=== PATIENT | male | born 1935 | race Hispanic/Latino ===

== ENCOUNTER 2016-11-02 21:21 | Inpatient (IN) | payer MEDICARE, OTHER ==
[2016-11-02 21:21] VITALS: PULSE 74
[2016-11-02 22:53] LABS: BASO # 0.02 K/mm3 (0.0-2.0); BASO % 0.3 % (0.0-3.0); EOS # 0.1 (0.0-0.7); GRAN # 4.14 (1.4-6.5); GRAN % 69.2 % (50.0-68.0); HEMOGLOBIN 11.8 gm/dL (14.0-18.0); LYMPH % 17.1 % (22.0-35.0); MEAN CORPUSCULAR HEMOGLOBIN 31.6 pg (25.0-35.0); MEAN CORPUSCULAR HGB CONC 32.9 g/dl (31.0-37.0); MEAN PLATELET VOLUME 10.7 fl (7.0-11.0); MONO # 0.7 (0.1-0.6); MONO % 11.4 % (1.0-6.0); PLATELET COUNT 130 10^3/uL (120.0-450.0); RBC 3.74 10^6/uL (3.5-6.1)
[2016-11-02 23:09] LABS: CALCIUM 8.8 mg/dL (8.4-10.5)
[2016-11-02 23:11] LABS: INR 2.38 (0.93-1.08); PARTIAL THROMBOPLASTIN TIME 36.7 Seconds (23.7-30.8); PROTHROMBIN TIME 25.7 Seconds (9.9-11.8)
[2016-11-02 23:20] LABS: TROPONIN I 0.02 ng/mL
[2016-11-02 23:25] LABS: CK-MB 2.9 ng/mL (0.0-3.6)
--- NOTE | 2016-11-03 00:15 | ED PDOC ---
Arrival/HPI <Huan Araujo - Last Filed: 11/03/16 00:33> - General Historian: Patient - History of Present Illness Time/Duration: < week (2 days) Symptom Onset: Gradual Symptom Course: Unchanged Activities at Onset: Rest, Light Context: Home <Mary Nath - Last Filed: 11/03/16 00:45> - General Chief Complaint: Cough, Cold, Congestion Time Seen by Provider: 11/02/16 22:25 - History of Present Illness Narrative History of Present Illness (Text): 11/02/16 22:25 81 year old male, whose past medical history includes CHF and atrial fibrillation, who presents to the Emergency department complaining of cough and shortness of breath for the past 2 days. Patient reports he was recently hospitalist in [place] for tachycardia and had a cardiac catheterization at that point. report patient was admitted to the hospital with a cough and left with the sane cough and shortness of breath. Patient presents today with cough and denies any fever, chest pain, nausea, vomiting, or any other complaints. (Mary Nath) Past Medical History - Provider Review Nursing Documentation Reviewed: Yes - Infectious Disease Hx of Infectious Diseases: None - Tetanus Immunization Tetanus Immunization: Unknown - Cardiac Other/Comment: hyperlipidemia, cabg. DAWNA- cardioversion. ventricular tachycardia - Pulmonary Hx Respiratory Disorders: No - Neurological HX Cerebrovascular Accident: Yes (aphasia, 12/2013, [facility]) Hx Syncope: Yes - HEENT Hx HEENT Disorder: No - Renal Hx Renal Disorder: No - Endocrine/Metabolic Hx Hypothyroidism: Yes - Hematological/Oncological Hx Blood Disorders: No - Integumentary Hx Dermatological Disorder: No - Musculoskeletal/Rheumatological Hx Falls: Yes - Gastrointestinal Hx Gastrointestinal Disorders: No - Genitourinary/Gynecological Hx Urinary Tract Infection: Yes - Psychiatric Hx Depression: No Hx Emotional Abuse: No Hx Physical Abuse: No Hx Substance Use: No - Surgical History Hx Cardiac Catheterization: Yes - Anesthesia Hx Anesthesia: Yes - Suicidal Assessment Feels Threatened In Home Enviroment: No <Mary Nath - Last Filed: 11/03/16 00:45> Family/Social History - Physician Review Nursing Documentation Reviewed: Yes Family/Social History: Unknown Family HX Smoking Status: Never Smoked Hx Alcohol Use: No Hx Substance Use: No Hx Substance Use Treatment: No <Mary Nath - Last Filed: 11/03/16 00:45> Allergies/Home Meds <Huan Araujo - Last Filed: 11/03/16 00:33> <Mary Nath - Last Filed: 11/03/16 00:45> Allergies/Adverse Reactions: Allergies No Known Allergies Allergy (Verified 09/26/11 10:34) Home Medications: Home Meds Medication Instructions Recorded Confirmed Levothyroxine [Synthroid] 50 mcg PO DAILY 12/31/12 11/02/16 Metoprolol Tartrate [Lopressor] 50 mg PO BID 11/06/13 11/02/16 Warfarin Sodium [Coumadin] 4 mg PO DAILY 11/06/13 11/02/16 Amiodarone HCl [Pacerone] 200 mg PO DAILY 11/02/16 11/02/16 Atorvastatin [Lipitor] 40 mg PO DIN 11/02/16 11/02/16 Famotidine [Pepcid] 20 mg PO HS 11/02/16 11/02/16 Finasteride [Proscar] 5 mg PO DAILY 11/02/16 11/02/16 Furosemide [Lasix] 20 mg PO DAILY 11/02/16 11/02/16 Lisinopril [Zestril] 2.5 mg PO DAILY 11/02/16 11/02/16 Memantine HCl 10 mg PO DAILY 11/02/16 11/02/16 Potassium Chloride [Klor-Con 10 meq PO DAILY 11/02/16 11/02/16 Sprinkle] Tamsulosin HCl [Flomax] 0.4 mg PO DAILY 11/02/16 11/02/16 Warfarin [Coumadin] 2 mg PO DAILY 11/02/16 11/02/16 Review of Systems - Physician Review All systems were reviewed & negative as marked: Yes - Review of Systems Constitutional: Normal. absent: Fevers Eyes: Normal ENT: Normal Respiratory: SOB, Cough Cardiovascular: Normal. absent: Chest Pain Gastrointestinal: Normal. absent: Abdominal Pain, Diarrhea, Nausea, Vomiting Genitourinary Male: Normal. absent: Dysuria, Frequency, Hematuria, Urinary Output Changes Musculoskeletal: Normal. absent: Back Pain, Neck Pain Skin: Normal. absent: Rash Neurological: Normal. absent: Headache, Dizziness Endocrine: Normal Hemo/Lymphatic: Normal Psychiatric: Normal <Mary Nath - Last Filed: 11/03/16 00:45> Physical Exam Vital Signs Reviewed: Yes Temperature: Afebrile Blood Pressure: Normal Pulse: Regular Respiratory Rate: Normal Appearance: Positive for: Well-Appearing, Non-Toxic, Comfortable Pain Distress: None Mental Status: Positive for: Alert and Oriented X 3 - Systems Exam Head: Present: Atraumatic, Normocephalic Pupils: Present: PERRL Extroacular Muscles: Present: EOMI Conjunctiva: Present: Normal Mouth: Present: Moist Mucous Membranes Neck: Present: Normal Range of Motion Respiratory/Chest: Present: Rales (Minimal rales bilaterally). No: Respiratory Distress, Accessory Muscle Use Cardiovascular: Present: Regular Rate and Rhythm, Normal S1, S2. No: Murmurs Abdomen: Present: Normal Bowel Sounds. No: Tenderness, Distention, Peritoneal Signs Back: Present: Normal Inspection. No: CVA Tenderness, Midline Tenderness, Paraspinal Tenderness Upper Extremity: Present: Normal Inspection. No: Cyanosis, Edema Lower Extremity: Present: Normal Inspection, NORMAL PULSES, Normal ROM, Neurovascularly Intact, Capillary Refill < 2 s. No: Edema, Cyanosis, Tenderness , Swelling, Erythema, Deformity, Temperature Abnormalties Neurological: Present: GCS=15, CN II-XII Intact, Speech Normal Skin: Present: Warm, Dry, Normal Color. No: Rashes Psychiatric: Present: Alert, Oriented x 3, Normal Insight, Normal Concentration <Mary Nath - Last Filed: 11/03/16 00:45> Vital Signs Temp Pulse Resp BP Pulse Ox 11/02/16 23:14 61 16 138/84 99 11/02/16 21:44 98.3 F 65 14 117/98 H 96 Medical Decision Making <Huan Araujo - Last Filed: 11/03/16 00:33> - Lab Interpretations I have reviewed the lab results: Yes - RAD Interpretation Summer Clerk: ED Physician - EKG Interpretation Interpreted by ED Physician: Yes Type: 12 lead EKG <Mary Nath - Last Filed: 11/03/16 00:45> ED Course and Treatment: 11/02/16 22:25 Impression: 81 year old male complaining of cough and shortness of breath x 2 days. Differential Diagnosis include but are not limited to: CHF exacerbation Plan: -- EKG -- CXR -- CBC, CMP -- Troponin, BNP -- PT/PTT -- Reassess and disposition Progress Notes: pt seen and evaluated by dr. araujo . Pt saturating 90% on room air. Pt given 3L NC, now saturating 97%. Reviewed EKG, a fib at 64 bpm. LAD. Incomplete LBBB. Labs reviewed, troponin:0.02, BNP: 1450. Chest X-ray shows some blunting of costophrenic angles, greater on left, and mild vascular congestion lasix 20mg IV given Case discussed with Dr. Alvin Olivier, who is aware and agrees with plan. Accepts pt in to his service. Pt will be admitted to Telemetry for CHF exacerbation with Dr. Madrigal on cardiology consult. impression; chf exacerbation tele obs. (Mary Nath) - Lab Interpretations Lab Results: 11/02/16 22:38 11/02/16 22:38 Lab Results 11/02/16 22:38: PT 25.7 H, INR 2.38 H, APTT 36.7 H 11/02/16 22:38: WBC 6.0, RBC 3.74, Hgb 11.8 L, Hct 35.9 L, MCV 96.0, MCH 31.6, MCHC 32.9, RDW 17.0 H, Plt Count 130, MPV 10.7, Gran % 69.2 H, Lymph % (Auto) 17.1 L, Imperial % (Auto) 11.4 H, Eos % (Auto) 2.0, Baso % (Auto) 0.3, Gran # 4.14, Lymph # 1.0 L, Imperial # 0.7 H, Eos # 0.1, Baso # 0.02 11/02/16 22:38: Sodium 139, Potassium 4.2, Chloride 100, Carbon Dioxide 30, Anion Gap 13, BUN 42 H, Creatinine 1.4, Est GFR ( Amer) 59, Est GFR (Non- Af Amer) 49, Random Glucose 138 H, Calcium 8.8, Total Bilirubin 1.2, AST 40, ALT 33, Alkaline Phosphatase 105, Lactate Dehydrogenase 706 H, Total Creatine Kinase 252 H, CK-MB (CK-2) 2.9, CK-MB (CK-2) % Cancelled, Troponin I 0.02 D, NT -Pro-B Natriuret Pep 1450 H, Total Protein 7.9, Albumin 4.0, Globulin 3.9, Albumin/Globulin Ratio 1.0 L - RAD Interpretation Radiology Orders: 11/02/16 22:25 CHEST PORTABLE [RAD] Stat - Medication Orders Current Medication Orders: Discontinued Medications Furosemide (Lasix) 20 mg IVP STAT STA Stop: 11/03/16 00:23 - PA / ROBOT DESIGNER / Resident Statement MD/DO has reviewed & agrees with the documentation as recorded. MD/DO has examined the patient and agrees with the treatment plan. <Huan Araujo - Last Filed: 11/03/16 00:33> - Scribe Statement The provider has reviewed the documentation as recorded by the Scribe <Mary Nath - Last Filed: 11/03/16 00:45> - Scribe Statement Melody Davison All medical record entries made by the Scribe were at my direction and personally dictated by me. I have reviewed the chart and agree that the record accurately reflects my personal performance of the history, physical exam, medical decision making, and the department course for this patient. I have also personally directed, reviewed, and agree with the discharge instructions and disposition. (Mary Nath) Disposition/Present on Arrival <Huan Araujo - Last Filed: 11/03/16 00:33> - Present on Arrival Any Indicators Present on Arrival: No History of DVT/PE: No History of Uncontrolled Diabetes: No Urinary Catheter: No History of Decub. Ulcer: No History Surgical Site Infection Following: None - Disposition Have Diagnosis and Disposition been Completed?: Yes Disposition Time: 00:05 Patient Plan: Observation, Telemetry <Mary Nath - Last Filed: 11/03/16 00:45> - Disposition Diagnosis: CHF (congestive heart failure) Disposition: HOSPITALIZED Condition: FAIR
[2016-11-03 02:36] VITALS: BMI 25.2
[2016-11-03] MEDS ORDERED: Levalbuterol 0.63 MG/3 ML Inhal Soln UD IH PRN (09:28)
[2016-11-03 09:29] LABS: HEMOGLOBIN 11.4 gm/dL (14.0-18.0); MEAN CELL VOLUME 95.4 fL (80.0-105.0); MEAN CORPUSCULAR HEMOGLOBIN 31.1 pg (25.0-35.0); MEAN CORPUSCULAR HGB CONC 32.7 g/dl (31.0-37.0); MEAN PLATELET VOLUME 10.6 fl (7.0-11.0); RBC 3.66 10^6/uL (3.5-6.1); RED CELL DISTRIBUTION WIDTH 16.7 % (11.5-14.5); WHITE BLOOD COUNT 5.8 10^3/ul (4.5-11.0)
--- NOTE | 2016-11-03 09:40 | RAD ---
HISTORY: cough/sob COMPARISON: 03/16/2015 FINDINGS: LUNGS: No active pulmonary disease. PLEURA: Minimal blunting of the costophrenic angles CARDIOVASCULAR: Mild cardiomegaly OSSEOUS STRUCTURES: Sternal wires VISUALIZED UPPER ABDOMEN: Normal. OTHER FINDINGS: None. IMPRESSION: No active disease.
--- NOTE | 2016-11-03 11:16 | CP.PCM.CON ---
History of Present Illness - History of Present Illness History of Present Illness: Cardiac Eval, Hx of CAD, CABG, Ch A fib, recently Dc from [facility], C/ o Cough Past Patient History - Infectious Disease Hx of Infectious Diseases: None (Cad, S.OP CABG, 1997, Hx of Cath Three Vd. patent DANIELS to LAD, SVG sequential to D1, OM1, andLPDA, LOTTIE to RCA non Functional, But RCA has 50% stenosis, EDP-18, EF-45-505, Dt.. 03/19/2015.), C.diff (of CVA . Hx oh Ch Afib on anti coag), MRSA (of [place], Hx of Psych disorder. ) - Tetanus Immunizations Tetanus Immunization: Unknown - Past Social History Smoking Status: Never Smoked - CARDIAC Hx Cardiac Disorders: Yes (CABG) Hx Angina: No Hx Cardia Arrhythmia: Yes (A Fib) Hx Circulatory Problems: No Hx Congestive Heart Failure: Yes Hx Heart Murmur: Yes Hx Heart Transplant: No Hx Hypercholesterolemia: Yes Hx Hypertension: Yes Hx Internal Defibrillator: No Hx Mitral Valve Prolapse: No Hx Pacemaker: No Hx Peripheral Edema: No Hx Peripheral Vascular Disease: No - PULMONARY Hx Respiratory Disorders: No Hx Asthma: No Hx Bronchitis: No Hx Chronic Obstructive Pulmonary Disease (COPD): No Hx Emphysema: No Hx Pneumonia: No Hx Respiratory Aspiration: No Hx Respiratory Tract Infection: No Hx Sleep Apnea: No Hx Tuberculosis: No - NEUROLOGICAL Hx Neurological Disorder: Yes Hx Alzheimer's Disease: No HX Cerebrovascular Accident: Yes Hx Dementia: No Hx Dizziness: No Hx Meningitis: No Hx Migraine: No Hx Parkinson's Disease: No Hx Seizures: No Hx Transient Ischemic Attacks (TIA): Yes - HEENT Hx HEENT Problems: No Hx Blind: No Hx Cataracts: No Hx Deafness: No Hx Difficulty Chewing: No Hx Epistaxis: No Hx Glaucoma: No Hx Macular Degeneration: No - RENAL Hx Chronic Kidney Disease: No Hx Dialysis: No Hx Kidney Stones: No Hx Neurogenic Bladder: No Hx Pyelonephritis: No Hx Renal (Kidney) Cancer: No Hx Renal Failure: No - ENDOCRINE/METABOLIC Hx Endocrine Disorders: Yes Hx Adrenal Cancer: No Hx Diabetes Insipidus: No Hx Diabetes Mellitus Type 1: No Hx Diabetes Mellitus Type 2: No Hx Hyperthyroidism: No Hx Hypothyroidism: Yes Hx Systemic Lupus Erythematosus: No - HEMATOLOGICAL/ONCOLOGICAL Hx Blood Disorders: No Hx AIDS: No Hx Anemia: No Hx Cancer: No Hx Chemotherapy: No Hx Cirrhosis: No Hx Hemophilia: No Hx Hepatitis A: No Hx Hepatitis B: No Hx Hepatitis C: No Hx Human Immunodeficiency Virus (HIV): No Hx Metastesis: No Hx Shingles: No Hx Sickle Cell Disease: No Hx Unexplained Bleeding: No - INTEGUMENTARY Hx Dermatological Problems: No Hx Basil Cell: No Hx Eczema: No Hx Melanoma: No Hx Psoriasis: No Hx Squamous Cell: No - MUSCULOSKELETAL/RHEUMATOLOGICAL Hx Musculoskeletal Disorders: Yes Hx Arthritis: No Hx Back Pain: No Hx Degenerative Joint Disease: No Hx Falls: Yes Hx Fractures: No Hx Gout: No Hx Herniated Disk: No Hx Myasthenia Gravis: No Hx Osteoarthritis: No Hx Osteomyelitis: No Hx Osteoporosis: No Hx Rhabdomyolysis: No Hx Spinal Stenosis: No Hx Unsteady Gait: Yes - GASTROINTESTINAL Hx Gastrointestinal Disorders: No Hx Colostomy: No Hx Crohn's Disease: No Hx Diverticulitis: No Hx Gall Bladder Disease: No Hx Gastroesophageal Reflux: No Hx Ileostomy: No Hx Liver Failure: No Hx Pancreatitis: No HX Swallowing Problems: No Hx Ulcer: No - GENITOURINARY/GYNECOLOGICAL Hx Genitourinary Disorders: Yes Hx Hematuria: No Hx Incontinence: No Hx Prostate Problems: No Hx Sexually Transmitted Disorders: No Hx Urinary Tract Infection: Yes - PSYCHIATRIC Hx Psychophysiologic Disorder: No Hx Anxiety: No Hx Bipolar Disorder: No Hx Depression: No Hx Emotional Abuse: No Hx Hallucinations: No Hx Panic Symptoms: No Hx Paranoia: No Hx Post Traumatic Stress Disorder: No Hx Psychosis: No Hx Physical Abuse: No Hx Schizophrenia: No Hx Sexual Abuse: No - SURGICAL HISTORY Hx Surgeries: Yes (CABG) Hx Amputation: No Hx Appendectomy: No Hx Cardiac Catheterization: No Hx Cholecystectomy: No Hx Coronary Stent: No Hx Gastric Bypass Surgery: No Hx Hysterectomy: No Hx Joint Replacement: No Hx Kidney Transplant: No Hx Liver Transplant: No Hx Mastectomy: No Hx Musculoskeletal Surgery: No Hx Open Heart Surgery: No Hx Orthopedic Surgery: No Hx Splenectomy: No Hx Valve Replacement: No - ANESTHESIA Hx Anesthesia: Yes Meds Allergies/Adverse Reactions: Allergies Allergy/AdvReac Type Severity Reaction Status Date / Time No Known Allergies Allergy Verified 09/26/11 10:34 - Medications Medications: Current Medications Budesonide (Pulmicort Respules) 0.5 mg IH [id number] PARVEEN Famotidine (Pepcid) 20 mg PO 1000,2200 PARVEEN Levalbuterol HCl (Xopenex) 0.63 mg IH [id number] [facility]VEEN Levalbuterol HCl (Xopenex) 0.63 mg IH Q2 PRN PRN Reason: Shortness of Breath Levothyroxine Sodium (Synthroid) 50 mcg PO 0600 PARVEEN Methylprednisolone (Solu-Medrol) 30 mg IVP Q12 PARVEEN Sotalol HCl (Betapace) 80 mg PO BID PARVEEN Tamsulosin HCl (Flomax) 0.4 mg PO DAILY [facility] Results - Vital Signs Recent Vital Signs: Last Vital Signs Temp 98.4 F 11/03/16 06:00 Pulse 63 11/03/16 06:00 Resp 19 11/03/16 06:00 BP 96/49 L 11/03/16 06:00 Pulse Ox 98 11/03/16 06:00 - Labs Result Diagrams: 11/03/16 09:15 11/02/16 22:38 Labs: Laboratory Results - last 24 hr 11/03/16 09:15 WBC 5.8 RBC 3.66 Hgb 11.4 L Hct 34.9 L MCV 95.4 MCH 31.1 MCHC 32.7 RDW 16.7 H Plt Count 136 MPV 10.6 - EKG Data EKG comments: A fib64, Poor Rr progression.ILBB> Assessment & Plan - Assessment and Plan (Free Text) Assessment: 81 year old male with CAD, CABG.1997, recet cath Non Obst CAD Ch, A fib on Coumadin, Low normal EF-45-50 Hx of CVA Hx of VT hx of psych disorder admittecf with cough possibly acute bronchitis R/O CHF acute on ch secodary to Ischemic CMP Plan: Broad spectrum Antibiotica diyretics resume Coumadinf/u Lab F/u Cpk/ troponin.
[2016-11-03] MEDS ORDERED: Azithromycin 500MG/NS 250ml 500 MG/250 ML BAG IVPB STA (11:22)
[2016-11-03] MEDS: MethylPREDNISolone 40 mg Vial IVP SCH ×2 (11:31→21:19)
--- NOTE | 2016-11-03 12:07 | CARD ---
APPROVED REPORT EKG Measurement Heart [id number] <Conclusion> Atrial fibrillation with a competing junctional pacemaker with premature ventricular or aberrantly conducted complexes Left axis deviation Incomplete left bundle branch block Nonspecific ST and T wave abnormality, probably digitalis effect Abnormal ECG
[2016-11-03] MEDS: Levalbuterol 0.63 MG/3 ML Inhal Soln UD IH SCH ×2 (13:21→19:06)
[2016-11-03] MEDS: Budesonide 0.5 mg/2 ml Inhal Susp UD IH SCH (19:06)
[2016-11-04] MEDS: Levalbuterol 0.63 MG/3 ML Inhal Soln UD IH SCH ×4 (02:48→19:26)
[2016-11-04] MEDS: Levothyroxine 50 MCG TAB PO SCH (05:33)
[2016-11-04 07:51] LABS: ALB/GLOB RATIO 0.9 (1.1-1.8); ALBUMIN 4.2 g/dL (3.0-4.8); CALCIUM 9.1 mg/dL (8.4-10.5); MAGNESIUM 2.3 mg/dL (1.7-2.2)
[2016-11-04 07:56] LABS: INR 2.55 (0.93-1.08); PROTHROMBIN TIME 27.5 Seconds (9.9-11.8)
[2016-11-04 08:26] LABS: HEMOGLOBIN 12.1 gm/dL (14.0-18.0); MEAN CELL VOLUME 95.3 fL (80.0-105.0); MEAN CORPUSCULAR HEMOGLOBIN 31.7 pg (25.0-35.0); MEAN CORPUSCULAR HGB CONC 33.2 g/dl (31.0-37.0); MEAN PLATELET VOLUME 10.7 fl (7.0-11.0); RBC 3.82 10^6/uL (3.5-6.1); RED CELL DISTRIBUTION WIDTH 16.6 % (11.5-14.5); WHITE BLOOD COUNT 4.9 10^3/ul (4.5-11.0)
[2016-11-04] MEDS: Budesonide 0.5 mg/2 ml Inhal Susp UD IH SCH ×2 (08:28→19:26)
--- NOTE | 2016-11-04 08:40 | CP.PCM.PN ---
Subjective - Date & Time of Evaluation Date of Evaluation: 11/04/16 Time of Evaluation: 07:00 - Subjective Subjective: Feels better and wans to go home Objective - Vital Signs/Intake and Output Vital Signs (last 24 hours): Temp Pulse Resp BP Pulse Ox 97.8 F 67 18 116/65 95 11/04/16 06:00 11/04/16 06:00 11/04/16 06:00 11/04/16 06:00 11/04/16 06:00 Intake and Output: 11/04/16 11/04/16 06:59 18:59 Intake Total 500 Output Total 500 Balance 0 - Medications Medications: Current Medications Atorvastatin Calcium (Lipitor) 40 mg PO DIN [facility] Last Admin: 11/03/16 18:37 Dose: 40 mg Azithromycin (Zithromax) 250 mg PO DAILY [facility] PRN Reason: Protocol Stop: 11/07/16 23:59 Budesonide (Pulmicort Respules) 0.5 mg IH [id number] [facility] Last Admin: 11/04/16 08:28 Dose: 0.5 mg Famotidine (Pepcid) 20 mg PO 1000,2200 [facility] Last Admin: 11/03/16 21:18 Dose: 20 mg Furosemide (Lasix) 40 mg PO DAILY [facility] Levalbuterol HCl (Xopenex) 0.63 mg IH [id number] [facility] Last Admin: 11/04/16 08:28 Dose: 0.63 mg Levalbuterol HCl (Xopenex) 0.63 mg IH Q2 PRN PRN Reason: Shortness of Breath Levothyroxine Sodium (Synthroid) 50 mcg PO 0600 [facility] Last Admin: 11/04/16 05:33 Dose: 50 mcg Methylprednisolone (Solu-Medrol) 20 mg IVP Q12 [facility] Potassium Citrate (Urocit-K Er Tab) 10 meq PO DAILY [facility] Sotalol HCl (Betapace) 80 mg PO BID [facility] Last Admin: 11/03/16 18:37 Dose: 80 mg Tamsulosin HCl (Flomax) 0.4 mg PO DAILY [facility] Last Admin: 11/03/16 11:28 Dose: 0.4 mg Warfarin Sodium (Coumadin) 2 mg PO 1800 PARVEEN PRN Reason: Protocol Last Admin: 11/03/16 18:37 Dose: 2 mg - Labs Labs: 11/04/16 07:00 11/04/16 06:30 PT 27.5 Seconds (9.9-11.8) H 11/04/16 06:30 INR 2.55 (0.93-1.08) H 11/04/16 06:30 APTT 36.7 Seconds (23.7-30.8) H 11/02/16 22:38 Assessment and Plan - Assessment and Plan (Free Text) [facility] 81 [facility] [place] [facility] [place] C[place] CAD, CABG... 1997 Hx of Recent Cath ... Medical treatment Ch Afib on anti coag Hx of Vt on sotalol Mildly decreased LV FX. EF-45-50 Hx of Psych Disorder Acut Bronchitis on Zithromax ... improving Plan: Continue zithromax diuretics Monitor INR F/U Cx Pa and lat Dc planning.
[2016-11-04] MEDS: MethylPREDNISolone 40 mg Vial IVP SCH ×2 (10:10→22:35)
--- NOTE | 2016-11-04 10:14 | RAD ---
HISTORY: F/U pneumonia and compare COMPARISON: 11/02/2016 TECHNIQUE: Chest PA and lateral FINDINGS: LUNGS: Minimal bibasilar atelectasis. PLEURA: No significant pleural effusion identified. No pneumothorax apparent. CARDIOVASCULAR: Mild cardiomegaly. Sternal wires are present OSSEOUS STRUCTURES: No significant abnormalities. VISUALIZED UPPER ABDOMEN: Normal. OTHER FINDINGS: None. IMPRESSION: No active disease.
--- NOTE | 2016-11-04 19:49 | CP.PCM.CON ---
History of Present Illness - History of Present Illness History of Present Illness: 81 y.o. male admitted for cough and SOB. Found to have exacerbation of COPD. Yesterday became confused and .restless I spoke at [facility] with patient's and RN. Patient has 1:1 sitter. Review of Systems - Review of Systems All systems: reviewed and no additional remarkable complaints except Past Patient History - Infectious Disease Hx of Infectious Diseases: None (Cad, S.OP CABG, 1997, Hx of Cath Three Vd. patent DANIELS to LAD, SVG sequential to D1, OM1, andLPDA, LOTTIE to RCA non Functional, But RCA has 50% stenosis, EDP-18, [id number], Dt.. 03/19/2015.), C.diff (of CVA . Hx oh Ch Afib on anti coag), MRSA (of [place], Hx of Psych disorder. ) - Tetanus Immunizations Tetanus Immunization: Unknown - Past Medical History & Family History Past Medical History?: No Past Family History: Reviewed and not pertinent - Past Social History Smoking Status: Former Smoker Chewing Tobacco Use: No Cigar Use: No - CARDIAC Hx Cardiac Disorders: Yes (afib, CAD, CABG) Hx Congestive Heart Failure: Yes - PULMONARY Hx Respiratory Disorders: No Hx Asthma: No Hx Bronchitis: No Hx Chronic Obstructive Pulmonary Disease (COPD): No Hx Emphysema: No Hx Pneumonia: No Hx Respiratory Aspiration: No Hx Respiratory Tract Infection: No Hx Sleep Apnea: No Hx Tuberculosis: No - NEUROLOGICAL Hx Neurological Disorder: Yes Hx Alzheimer's Disease: No HX Cerebrovascular Accident: Yes Hx Dementia: No Hx Dizziness: No Hx Meningitis: No Hx Migraine: No Hx Parkinson's Disease: No Hx Seizures: No Hx Transient Ischemic Attacks (TIA): Yes - HEENT Hx HEENT Problems: No Hx Blind: No Hx Cataracts: No Hx Deafness: No Hx Difficulty Chewing: No Hx Epistaxis: No Hx Glaucoma: No Hx Macular Degeneration: No - RENAL Hx Chronic Kidney Disease: No Hx Dialysis: No Hx Kidney Stones: No Hx Neurogenic Bladder: No Hx Pyelonephritis: No Hx Renal (Kidney) Cancer: No Hx Renal Failure: No - ENDOCRINE/METABOLIC Hx Endocrine Disorders: Yes Hx Adrenal Cancer: No Hx Diabetes Insipidus: No Hx Diabetes Mellitus Type 1: No Hx Diabetes Mellitus Type 2: No Hx Hyperthyroidism: No Hx Hypothyroidism: Yes Hx Systemic Lupus Erythematosus: No - HEMATOLOGICAL/ONCOLOGICAL Hx Blood Disorders: No Hx AIDS: No Hx Anemia: No Hx Cancer: No Hx Chemotherapy: No Hx Cirrhosis: No Hx Hemophilia: No Hx Hepatitis A: No Hx Hepatitis B: No Hx Hepatitis C: No Hx Human Immunodeficiency Virus (HIV): No Hx Metastesis: No Hx Shingles: No Hx Sickle Cell Disease: No Hx Unexplained Bleeding: No - INTEGUMENTARY Hx Dermatological Problems: No Hx Basil Cell: No Hx Eczema: No Hx Melanoma: No Hx Psoriasis: No Hx Squamous Cell: No - MUSCULOSKELETAL/RHEUMATOLOGICAL Hx Musculoskeletal Disorders: Yes Hx Arthritis: No Hx Back Pain: No Hx Degenerative Joint Disease: No Hx Falls: Yes Hx Fractures: No Hx Gout: No Hx Herniated Disk: No Hx Myasthenia Gravis: No Hx Osteoarthritis: No Hx Osteomyelitis: No Hx Osteoporosis: No Hx Rhabdomyolysis: No Hx Spinal Stenosis: No Hx Unsteady Gait: Yes - GASTROINTESTINAL Hx Gastrointestinal Disorders: No Hx Colostomy: No Hx Crohn's Disease: No Hx Diverticulitis: No Hx Gall Bladder Disease: No Hx Gastroesophageal Reflux: No Hx Ileostomy: No Hx Liver Failure: No Hx Pancreatitis: No HX Swallowing Problems: No Hx Ulcer: No - GENITOURINARY/GYNECOLOGICAL Hx Genitourinary Disorders: Yes Hx Hematuria: No Hx Incontinence: No Hx Prostate Problems: No Hx Sexually Transmitted Disorders: No Hx Urinary Tract Infection: Yes - PSYCHIATRIC Hx Psychophysiologic Disorder: Yes Hx Anxiety: Yes Hx Bipolar Disorder: No Hx Depression: No Hx Emotional Abuse: No Hx Hallucinations: No Hx Panic Symptoms: Yes Hx Paranoia: No Hx Post Traumatic Stress Disorder: No Hx Psychosis: Yes Hx Physical Abuse: No Hx Schizophrenia: No Hx Sexual Abuse: No Other/Comment: Psychiatric Hospitalization for Behavioral disturbances and agitation secondary to vascular dementia at [facility] in 03/2015; H/O AFib with rapid rate,CHF,COPD. CABG 1998. 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 Also HLD.Hypothyroidism, HTN. - SURGICAL HISTORY Hx Surgeries: Yes (CABG) Hx Amputation: No Hx Appendectomy: No Hx Arteriovenous Shunt: No Hx Arthroscopy: No Hx Bile Duct Stent: No Hx Breast Biopsy: No Hx Cataract Extraction: No Hx Cardiac Catheterization: No Hx Carotid Endarterectomy: No Hx Cholecystectomy: No Hx Coronary Artery Bypass Graft: Yes Hx Coronary Stent: No Hx Dilation and Curettage: No Hx Eye Surgery: No Hx Gastric Bypass Surgery: No Hx Hysterectomy: No Hx Joint Replacement: No Hx Kidney Transplant: No Hx Liver Transplant: No Hx Mastectomy: No Hx Musculoskeletal Surgery: No Hx Open Heart Surgery: No Hx Orthopedic Surgery: No Hx Splenectomy: No Hx Valve Replacement: No - ANESTHESIA Hx Anesthesia: Yes Meds Allergies/Adverse Reactions: Allergies Allergy/AdvReac Type Severity Reaction Status Date / Time No Known Allergies Allergy Verified 09/26/11 10:34 - Medications Medications: Current Medications Atorvastatin Calcium (Lipitor) 40 mg PO DIN [facility] Last Admin: 11/04/16 17:56 Dose: 40 mg Azithromycin (Zithromax) 250 mg PO DAILY [facility] PRN Reason: Protocol Stop: 11/07/16 23:59 Last Admin: 11/04/16 10:08 Dose: 250 mg Budesonide (Pulmicort Respules) 0.5 mg IH [id number] [facility] Last Admin: 11/04/16 08:28 Dose: 0.5 mg Donepezil HCl (Aricept) 5 mg PO HS [facility] Famotidine (Pepcid) 20 mg PO 1000,2200 [facility] Last Admin: 11/04/16 10:09 Dose: 20 mg Fluoxetine HCl (Prozac) 10 mg PO DAILY [facility] Furosemide (Lasix) 40 mg PO DAILY [facility] Last Admin: 11/04/16 10:09 Dose: 40 mg Levalbuterol HCl (Xopenex) 0.63 mg IH [id number] [facility] Last Admin: 11/04/16 13:40 Dose: 0.63 mg Levalbuterol HCl (Xopenex) 0.63 mg IH Q2 PRN PRN Reason: Shortness of Breath Levothyroxine Sodium (Synthroid) 50 mcg PO 0600 [facility] Last Admin: 11/04/16 05:33 Dose: 50 mcg Methylprednisolone (Solu-Medrol) 20 mg IVP Q12 [facility] Last Admin: 11/04/16 10:10 Dose: 20 mg Potassium Citrate (Urocit-K Er Tab) 10 meq PO DAILY [facility] Last Admin: 11/04/16 10:08 Dose: 10 meq Risperidone (Risperdal Tab) 0.5 mg PO HS [facility] PRN Reason: Protocol Sotalol HCl (Betapace) 80 mg PO BID [facility] Last Admin: 11/04/16 17:58 Dose: 80 mg Tamsulosin HCl (Flomax) 0.4 mg PO DAILY [facility] Last Admin: 11/04/16 10:09 Dose: 0.4 mg Warfarin Sodium (Coumadin) 2 mg PO 1800 [facility] PRN Reason: Protocol Last Admin: 11/04/16 17:56 Dose: 2 mg Physical Exam - Constitutional Appears: Confused - Head Exam Head Exam: NORMOCEPHALIC - Psychiatric Exam Psychiatric exam: Anxious, Normal Mood Additional comments: Disoriented to month, day and year. Recent memory moderately impaired. Poor insight into medical condition. Restless with pressured speech No suicidal ideation or hallucinations Thinking confabulatory . Results - Vital Signs Recent Vital Signs: Last Vital Signs Temp 98.5 F 11/04/16 18:00 Pulse 81 11/04/16 18:00 Resp 18 11/04/16 18:00 BP 104/66 11/04/16 18:00 Pulse Ox 95 11/04/16 06:00 - Labs Result Diagrams: 11/04/16 07:00 11/04/16 06:30 - EKG Data EKG Interpreted by: Other - EKG Data When Compared to Previous EKG: No Significant Change Interpretation: Other - Impressions Impression: Acute Exacerbatuin of COPD . 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 Behavioral Disturbance. H/O CABG. Renal Insufficiency HTN,HLD Assessment & Plan - Assessment and Plan (Free Text) Plan: Continue Risperidal 0.5 mg H.S Memantine, Prozac 10 mg q a.m. Will order Geodon 10 mgm q 6h prn for severe agitation. Get vit d,b12 levels Continue 1:1 observation for patient safety. - Date & Time Date: 11/04/16 Time: 19:30
[2016-11-05] MEDS: Levalbuterol 0.63 MG/3 ML Inhal Soln UD IH SCH ×4 (01:23→20:44)
[2016-11-05 06:52] LABS: EOS % 0.1 % (1.5-5.0); GRAN # 9.95 (1.4-6.5); GRAN % 86.9 % (50.0-68.0); HEMOGLOBIN 12.2 gm/dL (14.0-18.0); LYMPH % 9.1 % (22.0-35.0); MEAN CELL VOLUME 94.3 fL (80.0-105.0); MEAN CORPUSCULAR HEMOGLOBIN 31.4 pg (25.0-35.0); MEAN CORPUSCULAR HGB CONC 33.2 g/dl (31.0-37.0); MEAN PLATELET VOLUME 10.5 fl (7.0-11.0); MONO # 0.5 (0.1-0.6); MONO % 3.9 % (1.0-6.0); PLATELET COUNT 171 10^3/uL (120.0-450.0); RBC 3.89 10^6/uL (3.5-6.1); RED CELL DISTRIBUTION WIDTH 16.6 % (11.5-14.5); WHITE BLOOD COUNT 11.5 10^3/ul (4.5-11.0)
[2016-11-05 06:55] LABS: PROTHROMBIN TIME 38.8 Seconds (9.9-11.8)
[2016-11-05 06:59] LABS: INR 3.59 (0.93-1.08)
[2016-11-05 07:08] LABS: ALBUMIN 4.2 g/dL (3.0-4.8); CALCIUM 9.1 mg/dL (8.4-10.5); MAGNESIUM 2.4 mg/dL (1.7-2.2)
[2016-11-05] MEDS: Budesonide 0.5 mg/2 ml Inhal Susp UD IH SCH ×2 (07:57→20:48)
[2016-11-06] MEDS: Levalbuterol 0.63 MG/3 ML Inhal Soln UD IH SCH ×4 (01:02→21:05)
[2016-11-06] MEDS: Levothyroxine 50 MCG TAB PO SCH ×2 (06:07→06:11)
[2016-11-06 07:33] LABS: PROTHROMBIN TIME 41.6 Seconds (9.9-11.8)
[2016-11-06] MEDS: Budesonide 0.5 mg/2 ml Inhal Susp UD IH SCH ×2 (07:35→21:05)
[2016-11-06 07:39] LABS: INR 3.85 (0.93-1.08)
[2016-11-07] MEDS: Levalbuterol 0.63 MG/3 ML Inhal Soln UD IH SCH ×4 (02:30→19:32)
[2016-11-07] MEDS: Levothyroxine 50 MCG TAB PO SCH (06:42)
[2016-11-07 07:02] LABS: BASO # 0.01 K/mm3 (0.0-2.0); BASO % 0.1 % (0.0-3.0); EOS % 0.2 % (1.5-5.0); GRAN # 7.12 (1.4-6.5); GRAN % 72.7 % (50.0-68.0); HEMOGLOBIN 12.2 gm/dL (14.0-18.0); LYMPH # 1.7 (1.2-3.4); LYMPH % 17.8 % (22.0-35.0); MEAN CELL VOLUME 94.9 fL (80.0-105.0); MEAN CORPUSCULAR HEMOGLOBIN 31.4 pg (25.0-35.0); MEAN CORPUSCULAR HGB CONC 33.1 g/dl (31.0-37.0); MEAN PLATELET VOLUME 11.5 fl (7.0-11.0); MONO # 0.9 (0.1-0.6); MONO % 9.2 % (1.0-6.0); PLATELET COUNT 203 10^3/uL (120.0-450.0); RBC 3.89 10^6/uL (3.5-6.1); RED CELL DISTRIBUTION WIDTH 16.7 % (11.5-14.5); WHITE BLOOD COUNT 9.8 10^3/ul (4.5-11.0)
[2016-11-07 07:20] LABS: PROTHROMBIN TIME 44.2 Seconds (9.9-11.8)
[2016-11-07] MEDS: Budesonide 0.5 mg/2 ml Inhal Susp UD IH SCH ×2 (07:22→19:31)
[2016-11-07 07:23] LABS: INR 4.09 (0.93-1.08)
[2016-11-07 07:26] LABS: ALBUMIN 3.8 g/dL (3.0-4.8); ALT/SGPT 28 U/L (7-56); AST/SGOT 31 U/L (15-59); BLOOD UREA NITROGEN 49 mg/dL (7-21); CALCIUM 8.8 mg/dL (8.4-10.5); GFR AFRICAN-AMERICAN > 60; GFR NON-AFRICAN AMERICAN 58
--- NOTE | 2016-11-07 10:48 | CP.PCM.PN ---
Subjective - Date & Time of Evaluation Date of Evaluation: 11/07/16 Time of Evaluation: 07:45 - Subjective Subjective: Feels better, cough is improving, no chest pain, SOB IMPROVED Objective - Vital Signs/Intake and Output Vital Signs (last 24 hours): Temp Pulse Resp BP Pulse Ox 98.4 F 66 18 128/66 97 11/07/16 07:30 11/07/16 10:14 11/07/16 07:30 11/07/16 10:15 11/07/16 07:30 Intake and Output: 11/07/16 11/07/16 06:59 18:59 Intake Total 540 Output Total 850 Balance -310 - Medications Medications: Current Medications Atorvastatin Calcium (Lipitor) 40 mg PO DIN [facility] Last Admin: 11/06/16 16:55 Dose: 40 mg Azithromycin (Zithromax) 250 mg PO DAILY [facility] PRN Reason: Protocol Stop: 11/07/16 23:59 Last Admin: 11/07/16 10:14 Dose: 250 mg Budesonide (Pulmicort Respules) 0.5 mg IH [id number] [facility] Last Admin: 11/07/16 07:22 Dose: 0.5 mg Donepezil HCl (Aricept) 5 mg PO HS [facility] Last Admin: 11/06/16 21:00 Dose: 5 mg Famotidine (Pepcid) 20 mg PO 1000,2200 [facility] Last Admin: 11/07/16 10:15 Dose: 20 mg Fluoxetine HCl (Prozac) 10 mg PO DAILY [facility] Last Admin: 11/05/16 10:22 Dose: 10 mg Furosemide (Lasix) 40 mg PO DAILY [facility] Last Admin: 11/07/16 10:15 Dose: 40 mg Levalbuterol HCl (Xopenex) 0.63 mg IH [id number] [facility] Last Admin: 11/07/16 07:22 Dose: 0.63 mg Levalbuterol HCl (Xopenex) 0.63 mg IH Q2 PRN PRN Reason: Shortness of Breath Last Admin: 11/05/16 04:14 Dose: 0.63 mg Levothyroxine Sodium (Synthroid) 50 mcg PO 0600 [facility] Last Admin: 11/07/16 06:42 Dose: 50 mcg Phytonadione (Vitamin K Inj) 10 mg SC BID [facility] Stop: 11/08/16 10:39 Potassium Citrate (Urocit-K Er Tab) 10 meq PO DAILY [facility] Last Admin: 11/07/16 10:22 Dose: 10 meq Prednisone (Prednisone Tab) 20 mg PO DAILY [facility] Last Admin: 11/07/16 10:16 Dose: 20 mg Risperidone (Risperdal Tab) 0.5 mg PO HS [facility] PRN Reason: Protocol Last Admin: 11/05/16 22:45 Dose: Not Given Risperidone (Risperdal Tab) 0.25 mg PO 1000,1600 [facility] Last Admin: 11/05/16 10:22 Dose: 0.25 mg Sotalol HCl (Betapace) 80 mg PO BID [facility] Last Admin: 11/07/16 10:14 Dose: 80 mg Tamsulosin HCl (Flomax) 0.4 mg PO DAILY [facility] Last Admin: 11/07/16 10:16 Dose: 0.4 mg Warfarin Sodium (Coumadin) 2 mg PO 1800 [facility] PRN Reason: Protocol Last Admin: 11/04/16 17:56 Dose: 2 mg Ziprasidone (Geodon Inj) 10 mg IM Q6H PRN PRN Reason: Agitation Zolpidem Tartrate (Ambien) 5 mg PO HS PRN; Protocol PRN Reason: Insomnia Last Admin: 11/06/16 21:00 Dose: 5 mg - Labs Labs: 11/07/16 06:35 11/07/16 06:35 PT 44.2 Seconds (9.9-11.8) H* 11/07/16 06:35 INR 4.09 (0.93-1.08) H* 11/07/16 06:35 APTT 36.7 Seconds (23.7-30.8) H 11/02/16 22:38 Assessment and Plan - Assessment and Plan (Free Text) Assessment: 81 YEAR OLD MALE with Hx of CAD , S/P CaBG 1997 Recent Cath ...patent grafts... Medical treatment Ch. afib ..on anti caogulation Supratherapeutic INR ... Coumadin on Hold Acute Bronchitis ..on Zithromax Recently DC from [facility] Hx of Psych disorder Hx of VT in the past on Sotalol Plan: Antibiotis fr total 5 days Hold Coumadin Continue Rehab Overall improving. Dc palnning.
[2016-11-07] MEDS: Phytonadione 10 mg/ml Inj (Adult) SC SCH ×2 (11:55→17:15)
[2016-11-07 16:19] VITALS: RESP 20
[2016-11-08] MEDS: Levalbuterol 0.63 MG/3 ML Inhal Soln UD IH SCH ×3 (01:32→13:16)
[2016-11-08] MEDS: Levothyroxine 50 MCG TAB PO SCH (06:19)
[2016-11-08 07:07] LABS: INR 2.18 (0.93-1.08); PROTHROMBIN TIME 23.5 Seconds (9.9-11.8)
[2016-11-08] MEDS: Budesonide 0.5 mg/2 ml Inhal Susp UD IH SCH (07:18)
[2016-11-08 08:20] VITALS: TEMP 97.6; O2SAT 97
[2016-11-08] MEDS: Phytonadione 10 mg/ml Inj (Adult) SC SCH (09:49)
[2016-11-08 09:54] VITALS: BP 117/66; PULSE 60
--- NOTE | 2016-11-08 12:47 | CP.PCM.PN ---
Subjective - Date & Time of Evaluation Date of Evaluation: 11/08/16 Time of Evaluation: 09:45 - Subjective Subjective: Feels ok wanted to go home, cough improved. Objective - Vital Signs/Intake and Output Vital Signs (last 24 hours): Temp Pulse Resp BP Pulse Ox 97.6 F 60 20 117/66 97 11/08/16 08:20 11/08/16 09:49 11/08/16 08:20 11/08/16 09:49 11/08/16 08:20 Intake and Output: 11/08/16 11/08/16 06:59 18:59 Intake Total 480 60 Balance 480 60 - Medications Medications: Current Medications Atorvastatin Calcium (Lipitor) 40 mg PO DIN [facility] Last Admin: 11/07/16 17:14 Dose: 40 mg Budesonide (Pulmicort Respules) 0.5 mg IH [id number] [facility] Last Admin: 11/08/16 07:18 Dose: 0.5 mg Donepezil HCl (Aricept) 5 mg PO HS [facility] Last Admin: 11/07/16 21:09 Dose: 5 mg Famotidine (Pepcid) 20 mg PO 1000,2200 [facility] Last Admin: 11/08/16 09:49 Dose: 20 mg Furosemide (Lasix) 40 mg PO DAILY [facility] Last Admin: 11/08/16 09:48 Dose: 40 mg Levalbuterol HCl (Xopenex) 0.63 mg IH [id number] [facility] Last Admin: 11/08/16 07:18 Dose: 0.63 mg Levalbuterol HCl (Xopenex) 0.63 mg IH Q2 PRN PRN Reason: Shortness of Breath Last Admin: 11/05/16 04:14 Dose: 0.63 mg Levothyroxine Sodium (Synthroid) 50 mcg PO 0600 [facility] Last Admin: 11/08/16 06:19 Dose: 50 mcg Potassium Citrate (Urocit-K Er Tab) 10 meq PO DAILY [facility] Last Admin: 11/08/16 09:50 Dose: 10 meq Prednisone (Prednisone Tab) 20 mg PO DAILY [facility] Last Admin: 11/08/16 09:49 Dose: 20 mg Sotalol HCl (Betapace) 80 mg PO BID [facility] Last Admin: 11/08/16 09:49 Dose: 80 mg Tamsulosin HCl (Flomax) 0.4 mg PO DAILY [facility] Last Admin: 11/08/16 09:49 Dose: 0.4 mg Warfarin Sodium (Coumadin) 2 mg PO 1800 [facility] PRN Reason: Protocol Last Admin: 11/04/16 17:56 Dose: 2 mg Zolpidem Tartrate (Ambien) 5 mg PO HS [facility] Last Admin: 11/07/16 22:00 Dose: Not Given - Labs Labs: 11/07/16 06:35 11/07/16 06:35 PT 23.5 Seconds (9.9-11.8) H 11/08/16 06:30 INR 2.18 (0.93-1.08) H 11/08/16 06:30 APTT 36.7 Seconds (23.7-30.8) H 11/02/16 22:38 Assessment and Plan - Assessment and Plan (Free Text) Assessment: 81 elizabeth old male with Hx of CABG..1998 psych disorder recent cath ... medical treatment acute bronchitis cough.. improved on antibiotics Ch afib... on anticoag.. was on hold b/c of supra therapeutic level Plan: agrressive medical treatment resume low dose coumadin possible Dc home.
--- NOTE | 2016-11-11 09:12 | PQF CHF ---
This form is a permanent part of the medical record DR. CASAS, Please specify type of CHF. Clarification of your documentation is requested to better reflect the severity of illness and intensity of treatment of your patient. Indicators present [] Diagnosis of CHF and/or history of CHF [] BNP > 200 [] Imaging Finding of Pulmonary Edema /Pleural Effusions [] Fluid/Volume Overload [] Pitting edema [] Ejection Fraction < 40% (Indicative of Systolic Heart Failure) [] Ejection Fraction > 40% (Indicative of Diastolic Heart Failure) [] Dyspnea / Orthopenea / Paroxysmal Nocturnal Dyspnea [] Other: Location in the medical record that reflects the above clinical findings: [] Treatment Provided: [] PHYSICIAN'S RESPONSE Based on your medical judgment of the clinical indicators outlined above, are you treating this patient for a known or suspected: [] Acute CHF [] Systolic [] Diastolic [] Combined [] Chronic CHF [] Systolic [] Diastolic [] Combined [x] Acute on Chronic CHF [x]Systolic [] Diastolic [] Combined [] CHF due hypertension [] Acute systolic []Chronic systolic [] Acute/ chronic systolic [] Other, please indicate: [] [] If Unable to Determine, please check the box, sign and date. Present On Admission (POA) Indicator: [] Present at the time of admission [] Not present at the time of admission [] Clinically Undetermined In responding to this query, please exercise your independent professional judgment. The fact that a question is asked does not imply that any particular answer is desired or expected. Thank you for your clarification on this documentation. If you have any questions please call:[ ] * Thank you, [X ] JOSE MIGUEL BARRAZAcrime scene investigator [email or web address]
--- NOTE | 2016-11-29 10:59 | CON ---
REASON FOR PULMONARY CONSULTATION:COUGH. REFERRING PHYSICIAN:DR. QUICK. The patient was originally seen on 11/03/2016. REASON FOR DICTATION DELAY: Cyber attack and I have just returned from vacation today. HISTORY OF PRESENT ILLNESS: The patient is an 81-year-old male with past medical history significant for congestive heart failure, atrial fibrillation (on Coumadin), coronary artery disease, status post open heart surgery, who presented to [facility] with main complaints of cough and dyspnea on exertion for the past two weeks. The patient is not short of breath at rest. He denies sputum production. There is no history of chest pain, coughing up of blood, or chest pain-made worse with deep respirations. There is no history of temperature, chills or infectious exposure. There is no history of night sweats, weight loss or appetite change prior to the above events. No history of leg or calf pains. No history of syncope or diaphoresis. No history of recent travel or trauma. REVIEW OF SYSTEMS: No history of nausea, vomiting or diarrhea. No acute urinary symptoms. No new neurological or musculoskeletal complaints. Rest of review of systems is negative. ALLERGIES: NO KNOWN ALLERGIES. SOCIAL HISTORY: Negative for tobacco. Negative for alcohol. FAMILY HISTORY: No inheritable diseases. HOME MEDICATIONS: Include Coumadin, Lasix, Zestril, Proscar, Synthroid, Pepcid, Lipitor, Flomax, Betapace, Deltasone. PHYSICAL EXAMINATION: GENERAL: The patient is not short of breath at rest. He is not using accessory muscles for breathing. VITAL SIGNS: Temperature is 98.4, pulse 63, respiration 19, blood pressure 96/29. Oxygen saturation on nasal cannula is 98%. HEENT: Normocephalic and atraumatic. NECK: Positive JVD. CARDIOVASCULAR: Systolic ejection murmur at the lower left sternal border. Positive S3 gallop. LUNGS: Crackles at the bases. Minimal rhonchi and wheezing bilaterally. EXTREMITIES: Mild edema. No cyanosis. No clubbing. Calves are nontender to palpation. GASTROINTESTINAL: Abdomen is soft, nontender and nondistended. Bowel sounds are positive. SKIN: No acute rash. NEUROLOGIC: Limited at the present time. PERTINENT LABORATORY DATA: Chest x-ray was done and reviewed. There is mild congestive heat failure seen with small bilateral plural effusions. CBC: White count 6.0, hemoglobin 11.8, hematocrit 35.9, and platelets are 130. Complete metabolic profile: BUN 42, glucose 138, LDH 706, creatine kinase 252, B-type natriuretic peptide 1450. Rest of the metabolic profile is within normal limits. IMPRESSION: 1. Acute congestive heart failure. 2. Acute bronchitis. 3. Coronary artery disease. 4. Cardiac arrhythmias. 5. Mild anemia. PLAN: The patient presents to [facility] with main complaints of cough and dyspnea on exertion for the past two weeks. He offers no other pulmonary symptoms. I did review the chest x-ray as above. The x-ray is consistent with mild congestive heart failure with small bilateral plural effusions. The patient has been placed on Lasix therapy. Cardiology evaluation by Dr. Madrigal has been ordered. On physical exam, the patient is in mild bronchospasm. I will start the patient on nebulizer treatments and low dose intervenous steroids. There is no history of temperatures. There is no leukocytosis. The patient does state to feeling better this morning-compared to the past few days. He is clinically improved. Additional pulmonary intervention will be based on the clinical status of the patient. I will discuss the above with Dr. Quick. Thank you very much for this pulmonary consultation. Eamon Morales MD MTDD
== END 2016-11-08 16:16 | disposition home health service (06) | DRG 190 ==
LOC: ED 21:21 → ERH 11-03 00:13 → 2RNO 11-03 01:41 → OBSVTOIN 11-04 13:02 → 2RNO 11-04 14:39 → 5RNO 11-06 18:00
PROVIDERS: ADMIT Internal Medicine; ATTEND Internal Medicine
PROC: 3E0F7GC Introduction of Other Therapeutic Substance into Respiratory Tract, Via Natural or Artificial Opening (ICD-10-PCS; principal; 2016-11-03)
DX: J44.0 Chronic obstructive pulmonary disease with (acute) lower respiratory infection (principal); J20.9 Acute bronchitis, unspecified; J44.1 Chronic obstructive pulmonary disease with (acute) exacerbation; I11.0 Hypertensive heart disease with heart failure; I50.23 Acute on chronic systolic (congestive) heart failure; F01.51 Vascular dementia, unspecified severity, with behavioral disturbance; I48.2 Chronic atrial fibrillation; I25.10 Atherosclerotic heart disease of native coronary artery without angina pectoris; E03.9 Hypothyroidism, unspecified; D64.9 Anemia, unspecified; E78.5 Hyperlipidemia, unspecified; N28.9 Disorder of kidney and ureter, unspecified; Z79.01 Long term (current) use of anticoagulants; Z86.73 Personal history of transient ischemic attack (TIA), and cerebral infarction without residual deficits; Z95.1 Presence of aortocoronary bypass graft; Z87.891 Personal history of nicotine dependence

== ENCOUNTER 2017-04-15 13:35 | Inpatient (IN) | payer MEDICARE, OTHER ==
[2017-04-15 13:36] VITALS: PULSE 74
--- NOTE | 2017-04-15 13:53 | ED PDOC ---
Arrival/HPI - General Chief Complaint: Weakness/Neurological Deficit Time Seen by Provider: 04/15/17 13:44 Historian: Patient, Spouse () - History of Present Illness Narrative History of Present Illness (Text): 04/15/17 13:53 82 year old male, whose past medical history includes CABG, CHF, CVA with slight aphasia (2013), COPD, dementia, and irregular heart rate, who presents to the emergency department complaining of generalized weakness that began 3 days ago. Patient's reports he's been feeling weak usually at night and is not able to walk on his own. Patient denies any pain, fever, chills, chest pain , shortness of breath, nausea, vomiting, diarrhea, urinary symptoms, back pain, neck pain, headache, dizziness, or any other complaints. PMD: Dr. Louie Olivier Time/Duration: Other (3 days) Symptom Course: Unchanged Activities at Onset: Light Context: Home Past Medical History - Provider Review Nursing Documentation Reviewed: Yes - Infectious Disease Hx of Infectious Diseases: None - Tetanus Immunization Tetanus Immunization: Unknown - Cardiac Hx Cardiac Disorders: Yes (afib, CAD, CABG) Hx Congestive Heart Failure: Yes - Pulmonary Hx Respiratory Disorders: No Hx Asthma: No Hx Bronchitis: No Hx Chronic Obstructive Pulmonary Disease (COPD): No Hx Emphysema: No Hx Pneumonia: No Hx Respiratory Aspiration: No Hx Respiratory Tract Infection: No Hx Sleep Apnea: No Hx Tuberculosis: No - Neurological Hx Neurological Disorder: Yes HX Cerebrovascular Accident: Yes Hx Transient Ischemic Attacks (TIA): Yes - HEENT Hx HEENT Disorder: No Hx Blind: No Hx Cataracts: No Hx Deafness: No Hx Difficulty Chewing: No Hx Epistaxis: No Hx Glaucoma: No Hx Macular Degeneration: No - Renal Hx Renal Disorder: No - Endocrine/Metabolic Hx Endocrine Disorders: Yes Hx Hypothyroidism: Yes - Hematological/Oncological Hx Blood Disorders: No - Integumentary Hx Dermatological Disorder: No - Musculoskeletal/Rheumatological Hx Musculoskeletal Disorders: Yes Hx Falls: Yes Hx Unsteady Gait: Yes - Gastrointestinal Hx Gastrointestinal Disorders: No - Genitourinary/Gynecological Hx Genitourinary Disorders: Yes Hx Urinary Tract Infection: Yes - Psychiatric Hx Psychophysiologic Disorder: Yes Hx Anxiety: Yes Hx Panic Disorder: Yes Hx Psychosis: Yes Hx Substance Use: No Other/Comment: Psychiatric Hospitalization for 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 CABG 1997. 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 Also HLD.Hypothyroidism, HTN. - Surgical History Hx Coronary Artery Bypass Graft: Yes - Anesthesia Hx Anesthesia: Yes Hx Anesthesia Reactions: No Hx Malignant Hyperthermia: No - Suicidal Assessment Feels Threatened In Home Enviroment: No Family/Social History - Physician Review Nursing Documentation Reviewed: Yes Family/Social History: No Known Family HX Smoking Status: Former Smoker Hx Alcohol Use: No Hx Substance Use: No Hx Substance Use Treatment: No Allergies/Home Meds Allergies/Adverse Reactions: Allergies No Known Allergies Allergy (Verified 09/26/11 10:34) Home Medications: Home Meds Medication Instructions Recorded Confirmed Levothyroxine [Synthroid] 50 mcg PO DAILY 12/31/12 11/02/16 Atorvastatin [Lipitor] 40 mg PO DIN 11/02/16 11/02/16 Famotidine [Pepcid] 20 mg PO HS 11/02/16 11/02/16 Finasteride [Proscar] 5 mg PO DAILY 11/02/16 11/02/16 Furosemide [Lasix] 20 mg PO DAILY 11/02/16 11/02/16 Lisinopril [Zestril] 2.5 mg PO DAILY 11/02/16 11/02/16 Memantine HCl 10 mg PO DAILY 11/02/16 11/02/16 Potassium Chloride [Klor-Con 10 meq PO DAILY 11/02/16 11/02/16 Sprinkle] Tamsulosin HCl [Flomax] 0.4 mg PO DAILY 11/02/16 11/02/16 Warfarin [Coumadin] 2 mg PO DAILY 11/08/16 11/08/16 Review of Systems - Physician Review All systems were reviewed & negative as marked: Yes - Review of Systems Constitutional: absent: Fevers, Other (Chills) Respiratory: absent: SOB Cardiovascular: absent: Chest Pain Gastrointestinal: Appetite Changes. absent: Diarrhea, Nausea, Vomiting Musculoskeletal: absent: Back Pain, Neck Pain Neurological: absent: Headache, Dizziness Physical Exam Vital Signs Reviewed: Yes Vital Signs Temp Pulse Resp BP Pulse Ox 04/15/17 16:57 97.6 F 56 L 18 111/75 97 04/15/17 16:24 55 L 18 120/50 L 99 04/15/17 15:25 113/67 12/09/17 14:04 98.4 F 70 18 102/65 98 Temperature: Afebrile Blood Pressure: Normal Pulse: Regular Respiratory Rate: Normal Appearance: Positive for: Well-Appearing, Non-Toxic, Comfortable Pain Distress: None Mental Status: Positive for: Alert and Oriented X 3 - Systems Exam Head: Present: Atraumatic, Normocephalic Pupils: Present: PERRL Extroacular Muscles: Present: EOMI Conjunctiva: Present: Normal Mouth: Present: Moist Mucous Membranes Neck: Present: Normal Range of Motion Respiratory/Chest: Present: Clear to Auscultation, Good Air Exchange. No: Respiratory Distress, Accessory Muscle Use Cardiovascular: Present: Regular Rate and Rhythm, Normal S1, S2. No: Murmurs Abdomen: Present: Normal Bowel Sounds. No: Tenderness, Distention, Peritoneal Signs Back: Present: Normal Inspection Upper Extremity: Present: Normal Inspection. No: Cyanosis, Edema Lower Extremity: Present: Normal Inspection. No: Edema Neurological: Present: GCS=15, CN II-XII Intact. No: Speech Normal (Mild Aphasia) Skin: Present: Warm, Dry, Normal Color. No: Rashes Psychiatric: Present: Alert, Oriented x 3, Normal Insight, Normal Concentration Medical Decision Making ED Course and Treatment: 04/15/17 13:53 Impression: 82 year old male presents complaining of weakness that began 3 days ago. Differential Diagnosis included but are not limited to: Weakness Secondary to dehydration VS poor food intake VS Infection Plan: -- VBG -- EKG -- Labs -- Chest X-ray -- Blood Culture -- Urine Culture -- Reassess and disposition Prior Visits: Notes and results from previous visits were reviewed. Patient was last seen in the emergency department on 11/02/16 presents complaining of cough and shortness of breath. Patient was admitted. Progress Notes: EKG shows A-Fib at 73 BPM with incomplete right bundle. No change from . Interpreted by me. PROCEDURE: Chest X-ray Dictator : Jose Ramon Miranda MD Report Date : 04/15/2017 14:38:29 IMPRESSION: Vascular congestive changes with bilateral lower lobe alveolar-type infiltrates and bilateral effusions. 04/15/17 15:14 On reevaluation, and daughter stat that at night he's also more confused. I general he's not like himself. CT head ordered. CXR shows CHF pattern and discussed with Dr. Tirado, radiologist. Will tx with Lasix 40mg IV. Case discussed with Dr. Olivier who agrees to place patient in Remote Telemetry of weakness, ataxia, CHF, dementia. Accession No. : [id number] Patient Name / ID : HORTENCIA CASTRO / [id number] PROCEDURE: CT HEAD WITHOUT CONTRAST. IMPRESSION: No acute intracranial hemorrhage. Chronic left basal ganglia infarct which extends superiorly into the left frontal lobe as above. Ex vacuo dilatation left lateral ventricle on particularly left frontal horn. Minor chronic periventricular white matter ischemic changes. Moderate to significant generalized volume loss. - Lab Interpretations Lab Results: 04/15/17 14:00 04/15/17 14:00 Lab Results 04/15/17 14:00: Sodium 140, Chloride 101, Potassium 4.0, Carbon Dioxide 29, Anion Gap 15, BUN 22 H, Creatinine 1.1, Est GFR ( Amer) > 60, Est GFR ( Non-Af Amer) > 60, Random Glucose 189 H, Calcium 8.9, Phosphorus 3.3, Magnesium 2.0, Total Bilirubin 1.1, AST 37, ALT 15, Alkaline Phosphatase 109, Troponin I 0.02, NT-Pro-B Natriuret Pep 3020 H, Total Protein 8.8 H, Albumin 3.8, Globulin 5.0, Albumin/Globulin Ratio 0.8 L 04/15/17 14:00: pO2 38, VBG pH 7.36, VBG pCO2 58.0, VBG HCO3 32.8 H, VBG Total CO2 34.6 H, VBG O2 Sat (Calc) 76.7 H, VBG Base Excess 5.6 H, VBG Potassium 4.3, Sodium 139.0, Chloride 102.0, Glucose 198 H, Lactate 2.2 H, FiO2 21.0, Venous Blood Potassium 4.3 04/15/17 14:00: PT 21.2 H, INR 1.92 H, APTT 31.4 04/15/17 14:00: WBC 7.7 D, RBC 3.73, Hgb 11.8 L, Hct 36.1 L, MCV 96.8, MCH 31.6 , MCHC 32.7, RDW 17.2 H, Plt Count 140, MPV 10.8, Gran % 51.6, Lymph % (Auto) 36.1 H, Treasure % (Auto) 9.3 H, Eos % (Auto) 2.7, Baso % (Auto) 0.3, Gran # 3.99, Lymph # 2.8, Treasure # 0.7 H, Eos # 0.2, Baso # 0.02 I have reviewed the lab results: Yes - RAD Interpretation Radiology Orders: 04/15/17 13:52 CHEST PORTABLE [RAD] Stat 04/15/17 15:12 HEAD W/O CONTRAST [CT] Stat - EKG Interpretation Interpreted by ED Physician: Yes Type: 12 lead EKG - Medication Orders Current Medication Orders: Acetaminophen (Tylenol 325mg Tab) 650 mg PO Q4H PRN PRN Reason: Fever >100.5 F Discontinued Medications Furosemide (Lasix) 40 mg IVP STAT STA Stop: 04/15/17 15:14 Last Admin: 04/15/17 15:25 Dose: 40 mg MAR Blood Pressure Document 04/15/17 15:25 SRE (Rec: 04/15/17 15:26 SRE [id number]) Blood Pressure Blood Pressure (100/60-150/90) 113/67 IVP Administration Document 04/15/17 15:25 SRE (Rec: 04/15/17 15:26 SRE [id number]) Charges for Administration # of IVP Administrations 1 - Scribe Statement The provider has reviewed the documentation as recorded by the Magdalena Barahona Provider Scribe Attestation: All medical record entries made by the Suznaneibyoli were at my direction and personally dictated by me. I have reviewed the chart and agree that the record accurately reflects my personal performance of the history, physical exam, medical decision making, and the department course for this patient. I have also personally directed, reviewed, and agree with the discharge instructions and disposition. Disposition/Present on Arrival - Present on Arrival Any Indicators Present on Arrival: No History of DVT/PE: No History of Uncontrolled Diabetes: No Urinary Catheter: No History of Decub. Ulcer: No History Surgical Site Infection Following: None - Disposition Have Diagnosis and Disposition been Completed?: Yes Diagnosis: Weakness, CHF (congestive heart failure) Disposition: HOSPITALIZED Disposition Time: 17:35 Patient Plan: Observation Condition: FAIR
[2017-04-15 14:25] LABS: VENOUS BLOOD GAS BASE EXCESS 5.6 mmol/L (0.0-2.0); VENOUS BLOOD PH 7.36 (7.32-7.43)
[2017-04-15 14:28] LABS: BASO # 0.02 K/mm3 (0.0-2.0); BASO % 0.3 % (0.0-3.0); EOS # 0.2 (0.0-0.7); EOS % 2.7 % (1.5-5.0); GRAN # 3.99 (1.4-6.5); GRAN % 51.6 % (50.0-68.0); HEMATOCRIT 36.1 % (42.0-52.0); LYMPH # 2.8 (1.2-3.4); LYMPH % 36.1 % (22.0-35.0); MEAN CELL VOLUME 96.8 fl (80.0-105.0); MEAN CORPUSCULAR HEMOGLOBIN 31.6 pg (25.0-35.0); MEAN CORPUSCULAR HGB CONC 32.7 g/dl (31.0-37.0); MEAN PLATELET VOLUME 10.8 fl (7.0-11.0); MONO # 0.7 (0.1-0.6); MONO % 9.3 % (1.0-6.0); RED CELL DISTRIBUTION WIDTH 17.2 % (11.5-14.5); WHITE BLOOD COUNT 7.7 10^3/ul (4.5-11.0)
[2017-04-15 14:35] LABS: ALB/GLOB RATIO 0.8 (1.1-1.8); BILIRUBIN,TOTAL 1.1 mg/dL (0.2-1.3); CALCIUM 8.9 mg/dL (8.4-10.5); GFR AFRICAN-AMERICAN > 60; GLUCOSE,RANDOM 189 mg/dL (70-110); TOTAL PROTEIN 8.8 g/dL (5.8-8.3)
[2017-04-15 14:37] LABS: ALKALINE PHOSPHATASE 109 U/L (38-126); ALT/SGPT 15 U/L (7-56); AST/SGOT 37 U/L (17-59); BLOOD UREA NITROGEN 22 mg/dL (7-21); CARBON DIOXIDE 29 mmol/L (21-33); CHLORIDE 101 mmol/L (98-107); PHOSPHOROUS 3.3 mg/dL (2.5-4.5); SODIUM 140 mmol/L (132-148)
--- NOTE | 2017-04-15 14:39 | RAD ---
HISTORY: Sepsis Patient COMPARISON: Comparison chest 03/25/2017. . . FINDINGS: Note that the left lung apex is obscured by mandibular and facial soft tissue artifact. LUNGS: Re- demonstrated are bilateral interstitial type infiltrates with increased vascularity likely representing pulmonary edema/CHF. Bilateral lower lobe alveolar-type infiltrates and bilateral effusions. PLEURA: As above. No pneumothorax apparent. CARDIOVASCULAR: Heart remains enlarged. Sternotomy wires and CABG clips again noted. OSSEOUS STRUCTURES: No significant abnormalities. VISUALIZED UPPER ABDOMEN: Normal. OTHER FINDINGS: None. IMPRESSION: Vascular congestive changes with bilateral lower lobe alveolar-type infiltrates and bilateral effusions.
[2017-04-15 14:46] LABS: TROPONIN I 0.02 ng/mL
[2017-04-15 14:56] LABS: INR 1.92 (0.93-1.08); PARTIAL THROMBOPLASTIN TIME 31.4 Seconds (25.1-36.5)
[2017-04-15 16:35] LABS: PH,URINE 6.5 (4.7-8.0); URINE BILIRUBIN NEGATIVE (NEGATIVE); URINE BLOOD NEGATIVE (NEGATIVE); URINE GLUCOSE (UA) NEGATIVE (NEGATIVE); URINE KETONE NEGATIVE (NEGATIVE); URINE LEUKOCYTE ESTERASE NEGATIVE Leu/uL (NEGATIVE); URINE PROTEIN NEGATIVE mg/dL (<30 mg/dL); URINE UROBILINOGEN 0.2 E.U./dL (<1 E.U./dL)
[2017-04-15 16:36] LABS: URINE APPEARANCE CLEAR (CLEAR); URINE COLOR YELLOW (YELLOW)
--- NOTE | 2017-04-15 17:29 | CT ---
PROCEDURE: CT HEAD WITHOUT CONTRAST. HISTORY: Rule out CVA. COMPARISON: Comparison made with prior CT scan brain dated 03/19/2015. TECHNIQUE: Axial computed tomography images were obtained through the head/brain without intravenous contrast. Radiation dose: Total exam DLP = 775.01 mGy-cm. This CT exam was performed using one or more of the following dose reduction techniques: Automated exposure control, adjustment of the mA and/or kV according to patient size, and/or use of iterative reconstruction technique. FINDINGS: HEMORRHAGE: No acute parenchymal, subarachnoid or extra-axial hemorrhage. BRAIN: Re- demonstrated is a chronic appearing left basal ganglia infarct which extends superiorly into the left anterior centrum semiovale, lyle radiata and left frontal deep and subcortical white matter. Associated ex vacuo dilatation of the left lateral ventricle and in particular the left frontal horn due to the aforementioned infarct. There also appears to be some very mild chronic periventricular white matter ischemic changes as well. . Questionable small lacunar type infarct within the mid and left parasagittal [place]. Moderate -significant spell volume loss, not withstanding the aforementioned ex vacuo dilatation. ' Vascular calcifications both carotid siphons. VENTRICLES: No obstructive hydrocephalus. CALVARIUM: There are no acute calvarial fractures. PARANASAL SINUSES: Unremarkable as visualized. No significant inflammatory changes. MASTOID AIR CELLS: Unremarkable as visualized. No inflammatory changes. OTHER FINDINGS: Re- demonstrated are changes of bilateral cataract surgery. IMPRESSION: No acute intracranial hemorrhage. Chronic left basal ganglia infarct which extends superiorly into the left frontal lobe as above. Ex vacuo dilatation left lateral ventricle on particularly left frontal horn. Minor chronic periventricular white matter ischemic changes. Moderate to significant generalized volume loss.
[2017-04-15 18:19] LABS: VENOUS BLOOD GAS BASE EXCESS 9.4 mmol/L (0.0-2.0); VENOUS BLOOD PH 7.44 (7.32-7.43)
[2017-04-15 20:50] VITALS: BMI 25.0
[2017-04-15] MEDS ORDERED: Influenza Vaccine 60 mcg/0.5 mL SYR (4YR UP) IM ONE (20:50)
[2017-04-15] MEDS ORDERED: Pneumococcal 23-Valent Vaccine IM ONE (20:50)
[2017-04-16] MEDS: Levothyroxine 50 MCG TAB PO SCH (09:29)
[2017-04-16] MEDS: POTASSIUM CHLORIDE 10 MEQ PO SCH (09:30)
[2017-04-16 09:54] LABS: ALB/GLOB RATIO 0.8 (1.1-1.8); ALKALINE PHOSPHATASE 124 U/L (38-126); ALT/SGPT 17 U/L (7-56); AST/SGOT 35 U/L (17-59); BILIRUBIN,TOTAL 1.1 mg/dL (0.2-1.3); BLOOD UREA NITROGEN 21 mg/dL (7-21); CALCIUM 8.9 mg/dL (8.4-10.5); CARBON DIOXIDE 30 mmol/L (21-33); CHLORIDE 99 mmol/L (98-107); CHOLESTEROL 89 mg/dL (130-200); GFR AFRICAN-AMERICAN > 60; GLUCOSE,RANDOM 163 mg/dL (70-110); POTASSIUM 3.8 mmol/L (3.6-5.0); SODIUM 140 mmol/L (132-148); TOTAL PROTEIN 8.6 g/dL (5.8-8.3)
[2017-04-16 10:05] LABS: TROPONIN I 0.02 ng/mL
[2017-04-16 10:15] LABS: INR 1.91 (0.93-1.08)
--- NOTE | 2017-04-16 20:09 | CARD ---
APPROVED REPORT EKG Measurement Heart [id number] <Conclusion> Atrial fibrillation Left axis deviation Incomplete left bundle branch block Nonspecific T wave abnormality, probably digitalis effect Abnormal ECG
--- NOTE | 2017-04-17 00:32 | CON ---
DATE: 04/16/2017 CONSULT SERVICE: Cardiology. REASON FOR CONSULTATION AND FOLLOWUP: History of coronary artery disease, history of CABG, history of CVA, history of chronic atrial fibrillation, cardiac evaluation, admitted after a fall. BRIEF CLINICAL HISTORY: An 82-year-old male with past medical history significant for coronary artery disease, CABG in 1997, history of psych disorder, history of atrial fibrillation - chronic, on anticoagulation, CVA, COPD, questionable history of dementia, history of expressive aphasia, who fell down at home and called ambulance and brought here. The patient denies any chest pain. Denies any shortness of breath. Denies any palpitation. PAST MEDICAL HISTORY: Significant for coronary artery disease, status post open heart surgery in 1997, history of cardiac catheterization on 03/19/2015; 3-vessel disease, patent DANIELS to LAD, patent saphenous graft to diagonal 1 and OM1 sequential and LPDA, DANIELS to RCA nonfunctioning, but RCA with 50% stenosis. Ejection fraction 45-50%, history of CVA, history of chronic atrial fibrillation on anticoagulation, history of VT, history of psych disorder. History of recent cardiac workup as follows: The patient had a cardiac catheterization on 03/19/2015 that shows patient had a CABG in 1997 and bypass, cath was in because of the non-STEMI that showed port gamble triple vessel disease including ostial left main but patent DANIELS to LAD, patent saphenous graft sequential to D1, OM1 and LPDA, and patent right internal mammary artery to RCA but nonfunctioning, but ostial RCA has only 50% stenosis. Ejection fraction 45-50%, range of 15. Posterior basal hypokinesis noted, history of AFib, history of most recent echo on 03/16/2015 here in the hospital that showed ejection fraction 45%, regional wall motion abnormality noted, AFib, right ventricle is moderately dilated, trace aortic regurgitation, moderate valvular aortic stenosis, mild mitral regurgitation noted. There is moderate tricuspid regurgitation noted. No gradient on cardiac catheterization noted. SOCIAL HISTORY: Denies any history of alcohol abuse. REVIEW OF SYSTEMS: As per HPI. The patient denies any chest pain, shortness of breath, or any palpitation. PHYSICAL EXAMINATION VITAL SIGNS: Temperature afebrile, heart rate 64, blood pressure 145/72. HEENT: PERRLA intact. Extraocular muscles are intact. NECK: Supple. No carotid bruits or thyromegaly. CHEST: Clear to auscultation. HEART: S1 and S2, regular. ABDOMEN: Soft. EXTREMITIES: Clubbing and cyanosis negative. LABORATORY DATA: Blood workup as follows: WBC 7.3, hemoglobin 11.8, hematocrit 36.1, platelet count 140. Chemistry shows sodium 140, potassium 3.8, chloride 199, carbon dioxide 30, anion gap of 14, BUN 21, creatinine 1.1. Troponin remains 0.02, negative. INR 1.91. EKG shows atrial fibrillation, rate of 73, left axis deviation, left bundle-branch block. IMPRESSION: Status post fall. No evidence of acute myocardial infarction, history of chronic atrial fibrillation on anticoagulation, history of coronary artery disease, coronary artery bypass graft in 1997, history of cardiac catheterization in 2014, patent left internal mammary artery to left anterior descending artery, patent saphenous graft sequential to obtuse marginal-1, diagonal, left posterior descending artery. Occluded right internal mammary artery to right internal carotid artery, but ostial right coronary artery has 50% stenosis. Ejection fraction 45%. No gradient across the aortic valve on cardiac catheterization. The echo shows [id number] aortic stenosis. RECOMMENDATIONS: We will get echo to assess LV function. Continue anticoagulation. We will follow with you lipid profile, TSH, hemoglobin A1c, orthostatic hypotension to rule out any syncope, though the patient denies any syncope versus mechanical fall. We will resume the Coumadin with a goal to keep INR between 2 to 2.5. We will resume back also Betapace 40 mg b.i.d., and if the blood pressure and heart rate remain stable, we will increase it to 80 mg b.i.d. from tomorrow. We will add lipid profile, TSH, and hemoglobin A1c in today's blood. Also we will do the orthostatic to check drop in blood pressure, rule out orthostasis. I will do the echo in the morning to assess the LV function. We will follow with you. Thank you Dr. Olivier for providing us the opportunity in taking care of the patient, Sp Zimmer. Luis Madrigal MD [facility] # [id number]
[2017-04-17 06:31] LABS: BASO # 0.03 K/mm3 (0.0-2.0); BASO % 0.4 % (0.0-3.0); EOS # 0.2 (0.0-0.7); GRAN # 3.88 (1.4-6.5); GRAN % 49.2 % (50.0-68.0); LYMPH # 2.9 (1.2-3.4); LYMPH % 36.1 % (22.0-35.0); MEAN CELL VOLUME 95.1 fl (80.0-105.0); MEAN CORPUSCULAR HEMOGLOBIN 31.1 pg (25.0-35.0); MEAN CORPUSCULAR HGB CONC 32.7 g/dl (31.0-37.0); MEAN PLATELET VOLUME 10.6 fl (7.0-11.0); MONO # 0.9 (0.1-0.6); MONO % 11.3 % (1.0-6.0); RED CELL DISTRIBUTION WIDTH 17.2 % (11.5-14.5); WHITE BLOOD COUNT 7.9 10^3/ul (4.5-11.0)
[2017-04-17 06:37] LABS: INR 1.86 (0.93-1.08)
[2017-04-17 07:07] LABS: ALB/GLOB RATIO 0.8 (1.1-1.8); ALKALINE PHOSPHATASE 124 U/L (38-126); ALT/SGPT 17 U/L (7-56); AST/SGOT 32 U/L (17-59); BLOOD UREA NITROGEN 28 mg/dL (7-21); CARBON DIOXIDE 31 mmol/L (21-33); CHLORIDE 99 mmol/L (98-107); GFR AFRICAN-AMERICAN > 60; GLUCOSE,RANDOM 107 mg/dL (70-110); PHOSPHOROUS 3.7 mg/dL (2.5-4.5); POTASSIUM 3.3 mmol/L (3.6-5.0); SODIUM 139 mmol/L (132-148); TOTAL PROTEIN 8.8 g/dL (5.8-8.3)
[2017-04-17] MEDS ORDERED: Potassium Chloride 20 mEq ER Tab PO ONE (08:03)
[2017-04-17] MEDS: Levothyroxine 50 MCG TAB PO SCH (09:11)
[2017-04-17] MEDS: POTASSIUM CHLORIDE 10 MEQ PO SCH (10:20)
--- NOTE | 2017-04-17 14:51 | CARD ---
APPROVED REPORT EXAM: Two-dimensional and M-mode echocardiogram with Doppler and color Doppler. INDICATION Cardiac Disease: CAD 2D DIMENSIONS Left Atrium (2D)4.5 (1.6-4.0cm)IVSd1.2 (0.7-1.1cm) LVDd3.5 (3.9-5.9cm)PWd1.6 (0.7-1.1cm) LVDs2.3 (2.5-4.0cm)FS (%) 34.1 % LVEF (%)64.2 (>50%) M-Mode DIMENSIONS Aortic Root3.40 (2.2-3.7cm)Aortic Cusp Exc.1.00 (1.5-2.0cm) Aortic Valve AoV Peak Bqllnnjz095.0cm/sAoV VTI44.8cmAO Peak GR.18mmHg LVOT Peak Ksvymhms12.5cm/sLVOT VTI13.20cmAO Mean GR.9mmHg AI P 1/2 [id number] Mitral Valve E/A ratio0.0 TDI E/Lateral E'0.0E/Medial E'0.0 Tricuspid Valve TR Peak [id number]/sRAP [id number] Peak Gr.30mmHg [id number] LEFT VENTRICLE The left ventricle is normal size. There is mild concentric left ventricular hypertrophy. The left ventricular function is normal.EF-60-65% ( A fib) There is normal LV segmental wall motion. Afib No left ventricle thrombus noted on this study. There is no ventricular septal defect visualized. There is no left ventricular aneurysm. There is no mass noted in the left ventricle. RIGHT VENTRICLE The right ventricle is mildly dilated. There is normal right ventricular wall thickness. Systolic function is mildly reduced. ATRIA The left atrium is moderately dilated. The right atrium is mildly dilated. The interatrial septum is intact with no evidence for an atrial septal defect. AORTIC VALVE The aortic valve is calcified and displays decreased opening. The aortic valve is moderately to severely sclerotic. There is trace to mild aortic regurgitation. mild to modarate There is no aortic valvular vegetation. MITRAL VALVE The mitral valve is thickened but opens well. Mitral annular calcification is moderate. Mitral regurgitation is trace to mild. There is no mitral valve stenosis. There is no evidence of mitral valve prolapse. TRICUSPID VALVE The tricuspid valve leaflets are thickened or calcified, but open well. There is mild to moderate tricuspid regurgitation.RVSP-40 mmof Hg. There is no tricuspid valve stenosis. There is no tricuspid valve prolapse or vegetation. PULMONIC VALVE The pulmonic valve is not well visualized. There is no pulmonic valvular regurgitation. There is no pulmonic valvular stenosis. GREAT VESSELS The aortic root is normal in size. The ascending aorta is normal in size. The pulmonary artery is normal. The IVC is normal in size and collapses >50% with inspiration. PERICARDIAL EFFUSION There is no pleural effusion. There is no pericardial effusion. <Conclusion> The left ventricle is normal size. There is mild concentric left ventricular hypertrophy. The left ventricular function is normal.EF-60-65% ( A fib) There is trace to mild aortic regurgitation. Mitral regurgitation is trace to mild. There is mild to moderate tricuspid regurgitation.RVSP-40 mmof Hg. The IVC is normal in size and collapses >50% with inspiration. There is no pericardial effusion. No Vegetation or thrombus noted.
[2017-04-18 06:56] LABS: HEMATOCRIT 35.1 % (42.0-52.0); MEAN CELL VOLUME 94.6 fl (80.0-105.0); MEAN CORPUSCULAR HEMOGLOBIN 30.7 pg (25.0-35.0); MEAN CORPUSCULAR HGB CONC 32.5 g/dl (31.0-37.0); MEAN PLATELET VOLUME 10.3 fl (7.0-11.0); WHITE BLOOD COUNT 8.5 10^3/ul (4.5-11.0)
[2017-04-18 07:22] LABS: INR 2.35 (0.93-1.08)
[2017-04-18 07:33] LABS: CALCIUM 8.8 mg/dL (8.4-10.5); POTASSIUM 3.5 mmol/L (3.6-5.0)
--- NOTE | 2017-04-18 08:36 | PN ---
DATE: 04/17/2017 REASON FOR CONSULTATION AND FOLLOWUP: History of coronary artery disease, CABG, CVA, chronic atrial fibrillation, cardiac evaluation, admitted with the fall. SUBJECTIVE: The patient denies any chest pain or shortness of breath. Coming out from echo department. PHYSICAL EXAMINATION VITAL SIGNS: As follows; temperature is afebrile, heart rate 85, and blood pressure 94/50. HEENT: PERRLA. Extraocular muscles intact. NECK: Supple. No carotid bruits or thyromegaly. CHEST: Clear to auscultation. HEART: S1 and S2 regular. ABDOMEN: Soft. EXTREMITIES: Clubbing and cyanosis negative. LABORATORY DATA: Blood workup as follows: WBC 7.5, hemoglobin 12.1, hematocrit 37.0, and platelet count 140. Chemistry shows sodium 139, potassium 3.3, chloride 99, carbon dioxide of 31, anion gap of 13, BUN 23, and creatinine of 1.2. Total protein 8.8, albumin 3.8, albumin and globulin ratio 0.8, TSH 1.67. IMPRESSION: Anemia mild, hypokalemia, status post fall, history of coronary artery disease, history of coronary artery bypass grafting, history of chronic atrial fibrillation, on anticoagulation, history of coronary artery bypass grafting in 1997, history of cardiac catheterization on 03/19/2015 that shows patent left internal mammary artery to left anterior descending, patent sequential graft, diagonal 1 is OM1 and left posterior descending artery and patent right internal mammary to right coronary artery, but distal graft is nonfunctional, but ostial RCA has 55% stenosis and ejection fraction 45%, history of chronic atrial fibrillation, trace aortic regurgitation, moderate valvular aortic stenosis, [id number] regurgitation, moderate tricuspid regurgitation. No gradient noted on cardiac catheterization. The patient has just echo done, we will review. We will follow with you. Continue anticoagulation. Goal is to keep INR between 2 to 2.5, today is 1.86, and will give 4 mg of Coumadin today and 2 mg from tomorrow because INR is dipping down to 1.86, if deep down further. Repeat the lab in the morning. Luis Madrigal MD
[2017-04-18] MEDS ORDERED: Potassium Chloride 20 mEq/15 ml LIQ UD PO STA (09:27)
[2017-04-18] MEDS: Levothyroxine 50 MCG TAB PO SCH (10:07)
[2017-04-18] MEDS: POTASSIUM CHLORIDE 10 MEQ PO SCH (10:10)
[2017-04-18] MEDS ORDERED: Potassium Chloride 20 mEq ER Tab PO ONE ×2 (11:10→11:43)
--- NOTE | 2017-04-18 14:40 | PN ---
DATE: 04/18/2017 REASON FOR CONSULTATION: History of coronary artery disease, CABG, CVA, atrial fibrillation, cardiac evaluation, admitted after a fall. SUBJECTIVE: The patient denies any chest pain, shortness of breath, or any palpitation. OBJECTIVE: GENERAL: Not in apparent distress, lying flat in the bed. VITAL SIGNS: Temperature afebrile, heart rate 61, blood pressure 93/59. HEENT: PERRLA. Extraocular muscles intact. NECK: Supple. No carotid bruits or thyromegaly. CHEST: Clear to auscultation. HEART: S1 and S2 regular. ABDOMEN: Soft. EXTREMITIES: Clubbing and cyanosis negative. LABORATORY DATA: Blood workup as follows; WBC 8.5, hemoglobin 11.4, hematocrit 35.1, platelet count 148. Chemistry shows sodium 141, potassium 3.5, chloride 101, carbon dioxide 29, anion gap of 14, BUN 36, creatinine 1.4. The patient had echocardiography done yesterday that showed ejection fraction , trace to mild aortic regurgitation, trace to mild mitral regurgitation, raho-hb-rlzkpgtl tricuspid regurgitation, RV systolic pressure 40, aortic valve decreased opening with a fzpe-ap-vjigteld aortic stenosis noted, peak gradient across the aortic valve is 18 mmHg. IMPRESSION: An 82-year-old male with past medical history significant for history of coronary artery disease, coronary artery bypass graft, admitted after a fall, history of coronary artery bypass, history of atrial fibrillation, anticoagulation, history of coronary artery bypass in 1997, history of last catheterization on 03/19/2015 that showed a left internal mammary artery patent to left anterior descending grafted and sequential venous graft to diagonal 1, obtuse marginal 1 and left posterior descending artery, right internal mammary artery to right coronary artery with a nonfunctional ejection fraction 45%. No gradient across the aortic valve noted on computerized axial tomography. Previous echo also mentioned rjyo-ek-azobmnaz aortic stenosis, but no gradient by computerized axial tomography. RECOMMENDATIONS: Continue anticoagulation. Today, INR is 2.35. We will continue 2 mg of Coumadin was given. Followup PT/INR. Continue rehab. Thank you Dr. Olivier for providing us the opportunity in taking care of the patient, Goran Snowden. We will supplement electrolytes if needed. We will follow with you. We will supplement as mentioned K-Dur 40. We will put lisinopril with holding parameters. If blood pressure is low, we will hold it. We will supplement potassium 40. Luis Madrigal MD
--- NOTE | 2017-04-19 00:41 | PN ---
DATE: 04/18/2017 DAILY PROGRESS NOTE SUBJECTIVE: The patient was seen this Monday late eating in room 361, bed 2. He is awake, alert, and comfortable, sitting out of bed in chair, in good spirits, talking to . He was seen and admitted yesterday by Dr. Rafy Olivier. Today is day 1 of his hospital stay, admitted for generalized weakness. He seemed to improve dramatically with gentle overnight hydration, and in fact today, I received a phone call from nurse practitioner who reported physical therapist suggested that he is walking adequately and does not need further subacute rehab. PHYSICAL EXAMINATION: GENERAL: This evening, the patient is awake and in good spirits. HEAD AND NECK: Unremarkable. LUNGS: Show good aeration, right and left. HEART: Not tachycardic. EXTREMITIES: Show no edema. IMPRESSION: Generalized weakness, ataxia, dementia, perhaps related to dehydration. We will check morning labs and speak with the patient's about the recommendation of the physical therapist. Louie Olivier MD
[2017-04-19 07:32] LABS: ALB/GLOB RATIO 0.8 (1.1-1.8); ALKALINE PHOSPHATASE 116 U/L (38-126); ALT/SGPT 27 U/L (7-56); AST/SGOT 28 U/L (17-59); BLOOD UREA NITROGEN 32 mg/dL (7-21); CALCIUM 8.9 mg/dL (8.4-10.5); CARBON DIOXIDE 30 mmol/L (21-33); CHLORIDE 102 mmol/L (98-107); GFR AFRICAN-AMERICAN > 60; GLUCOSE,RANDOM 106 mg/dL (70-110); POTASSIUM 3.9 mmol/L (3.6-5.0); SODIUM 137 mmol/L (132-148); TOTAL PROTEIN 8.1 g/dL (5.8-8.3)
[2017-04-19 08:10] LABS: INR 3.2 (0.93-1.08)
[2017-04-19] MEDS: Levothyroxine 50 MCG TAB PO SCH (10:18)
[2017-04-19] MEDS: POTASSIUM CHLORIDE 10 MEQ PO SCH (10:20)
--- NOTE | 2017-04-19 11:14 | PN ---
DATE: 04/19/2017 REASON FOR CONSULTATION AND FOLLOWUP: History of coronary artery disease, CABG, CVA, atrial fibrillation, cardiac evaluation, admitted after a fall. SUBJECTIVE: The patient denies any chest pain, shortness of breath, or any palpitation. OBJECTIVE: GENERAL: Not in apparent distress, lying flat in the bed. VITAL SIGNS: Temperature afebrile, heart rate 76, blood pressure 107/67. HEENT: PERRLA. Extraocular muscles intact. NECK: Supple. No carotid bruits or thyromegaly. CHEST: Clear to auscultation. HEART: S1 and S2 regular. ABDOMEN: Soft. EXTREMITIES: Clubbing and cyanosis negative. LABORATORY DATA: Blood workup as follows; WBC 8.5, hemoglobin 11.4, hematocrit 35.1, and platelet count 148. Chemistry shows sodium 137, potassium 3.9, chloride 102, carbon dioxide 30, anion gap of 9, BUN 32, and creatinine 1.2. IMPRESSION AND PLAN: History of coronary artery disease, status post coronary artery bypass graft in 1997, history of last catheterization on 03/19/2015 that showed a patent bypass graft of left internal mammary artery to and a sequential graft to diagonal 1, marginal 1 and left posterior descending artery. Right internal mammary artery to right coronary artery occluded but right coronary artery has mild stenosis of 50%. No gradient across the aortic valve noted on CAT. Yesterday, the patient had a repeat echo done that showed ejection fraction of 50% to 65%, trace mild mitral regurgitation, mild to moderate tricuspid regurgitation with right ventricular systolic pressure of 40. Trace aortic regurgitation by echo again mild to moderate aortic stenosis noted as in the previous echo, but no significant gradient across the aortic valve noted. The patient admitted after a fall. Denies any chest pain. Admitted with generalized weakness and history of dementia. Left ventricular function is preserved. Today, INR is 3.2. We will hold Coumadin today and repeat tomorrow. If INR is less than 2.5, we will restart again. We will also discontinue Lasix b.i.d. We will 20 from today. The patient is not in congestive heart failure. We will repeat CBC and SMA-7 in the morning. We will follow with you. Thank you Dr. Olivier for providing us the opportunity in taking care of the patient, Sp Zimmer. Luis Madrigal MD
--- NOTE | 2017-04-19 19:35 | PN ---
DATE: 04/19/2017 LOCATION: The patient is in room 361, bed 2. REASON FOR CONSULTATION: Coronary artery disease, CABG, CVA, atrial fibrillation, and history of fall. SUBJECTIVE: The patient is sitting in bed. Denies any chest pain, shortness of breath or palpitation. PHYSICAL EXAMINATION: VITAL SIGNS: Blood pressure 109/57, respirations 18, pulse 62, and temperature 97.7. HEENT: Head is normocephalic. Eyes; pupils are normal. Conjunctivae slightly pale. NECK: JVP is low. Carotids are equal. THORAX: AP diameter normal. LUNGS: No rales. CARDIOVASCULAR: S1 and S2. ABDOMEN: Soft and nontender. No organomegaly. Bowel sounds normal. EXTREMITIES: No clubbing. No cyanosis. LABORATORY DATA: Sodium 137, potassium 3.9, BUN 32, creatinine 1.2, AST and ALT are normal. Total protein and albumin are normal. Calcium is normal. Random glucose 106. WBC 8.5, hemoglobin 11.4, hematocrit 35.1, and platelets 148. Prothrombin time today 36 with INR of 3.20. IMPRESSION: Coronary artery disease status post coronary artery bypass surgery in 1997. Last catheterization on 03/19/2015, findings described in the previous notes. On 04/17/2017, the patient had echo that showed ejection fraction of 60-65%, sychy-gt-dtca mitral regurgitation, dmvo-gz-qnyhcsfz tricuspid regurgitation with right ventricular systolic pressure of 40 mmHg, tdve-ct-cufmvkzl aortic stenosis, but no significant gradient across the aortic valve. The patient admitted status post fall, increased PT, INR. PLAN: We will hold Coumadin today. The patient clinically had no evidence of CHF at present moment. The patient is on sotalol 40 mg p.o. b.i.d., furosemide 20 mg daily, Lipitor 40 daily, potassium chloride 10 mEq p.o. daily, Synthroid 50 mcg p.o. daily, and Zestril 2.5 mg daily. We will hold warfarin, which is 2 mg daily and check PT and INR in the morning, which has been already ordered and we will follow with you. Luis Archer MD
[2017-04-20 03:07] VITALS: O2SAT 94
[2017-04-20 06:23] LABS: BASO # 0.03 K/mm3 (0.0-2.0); BASO % 0.4 % (0.0-3.0); EOS # 0.3 (0.0-0.7); EOS % 4.9 % (1.5-5.0); GRAN # 3.22 (1.4-6.5); GRAN % 46.7 % (50.0-68.0); HEMATOCRIT 34.6 % (42.0-52.0); LYMPH # 2.6 (1.2-3.4); LYMPH % 37.1 % (22.0-35.0); MEAN CELL VOLUME 93.8 fl (80.0-105.0); MEAN CORPUSCULAR HEMOGLOBIN 30.9 pg (25.0-35.0); MEAN CORPUSCULAR HGB CONC 32.9 g/dl (31.0-37.0); MEAN PLATELET VOLUME 10.3 fl (7.0-11.0); MONO # 0.8 (0.1-0.6); MONO % 10.9 % (1.0-6.0); RED CELL DISTRIBUTION WIDTH 16.8 % (11.5-14.5); WHITE BLOOD COUNT 6.9 10^3/ul (4.5-11.0)
[2017-04-20 06:48] LABS: BLOOD UREA NITROGEN 30 mg/dL (7-21); CALCIUM 8.9 mg/dL (8.4-10.5); CARBON DIOXIDE 31 mmol/L (21-33); CHLORIDE 103 mmol/L (98-107); GFR AFRICAN-AMERICAN > 60; GLUCOSE,RANDOM 98 mg/dL (70-110); POTASSIUM 3.8 mmol/L (3.6-5.0); SODIUM 140 mmol/L (132-148)
[2017-04-20 06:49] LABS: INR 3.15 (0.93-1.08)
[2017-04-20] MEDS: Levothyroxine 50 MCG TAB PO SCH (09:29)
[2017-04-20 09:33] VITALS: BP 101/61
[2017-04-20 09:51] VITALS: RESP 18; TEMP 97.8
[2017-04-20] MEDS: POTASSIUM CHLORIDE 10 MEQ PO SCH (14:28)
[2017-04-20 14:53] VITALS: PULSE 76
--- NOTE | 2017-04-20 17:41 | PN ---
DATE: REASON FOR CONSULTATION AND FOLLOWUP: History of coronary artery disease, CABG, CVA, atrial fibrillation, cardiac evaluation after a fall. SUBJECTIVE: The patient denies any chest pain or shortness of breath, lying flat on the bed, wanted to go home. PHYSICAL EXAMINATION GENERAL: Not in apparent distress. VITAL SIGNS: Temperature afebrile, heart rate 67, blood pressure 101/61. HEENT: PERRLA. Extraocular muscles intact. NECK: Supple. No carotid bruits or thyromegaly. CHEST: Clear to auscultation. HEART: S1 and S2 regular. ABDOMEN: Soft. EXTREMITIES: Clubbing and cyanosis negative. LABORATORY DATA: Blood workup as follows; WBC 6.9, hemoglobin 11.4, hematocrit 34.6, and platelet count 153. Chemistry shows sodium 140, potassium 3.8, chloride 103, carbon dioxide 31, anion gap of 10, BUN 30, and creatinine 1.1. IMPRESSION AND PLAN: An 82-year-old male with past medical history significant for coronary artery disease status post coronary artery bypass graft in 1997, history of last catheterization on 03/19/2015, shows patent bypass graft left internal mammary artery to left anterior descending artery, patent saphenous graft sequential to diagonal 1, OM1 and left posterior descending artery. Right internal mammary to right coronary artery occluded, but right coronary artery [place] had 50% stenosis, no gradient across the aortic valve noted. The patient's repeat echo done yesterday shows ejection fraction 60%-65% due to mild mitral regurgitation, esqh-ew-xjdrqtee tricuspid regurgitation, right ventricular systolic pressure of 40 mmHg, trace aortic regurgitation, fzdg-fo-xznucupc aortic stenosis, but previous cath did not show any significant gradient across aortic valve noted, dated echo 04/17/2017; ejection fraction reported 65%, atrial fibrillation, admitted with altered mental status, history of chronic atrial fibrillation, INR is 3.15. Coumadin is being given. Coumadin was on hold because of elevated . Continue sotalol, continue atorvastatin, continue gentle diuretics 20 mg daily. We will discontinue Lasix. CBC status stable and hold Coumadin when the INR is below 2.4, or else consider giving Coumadin. Continue levothyroxine. We will follow with you. Thank you Dr. Olivier for providing me the opportunity in taking care of the patientGoran. Luis Madrigal MD cc: Louie Olivier MD [facility] # [id number]
--- NOTE | 2017-04-20 23:53 | PN ---
DATE: 04/20/2017 SUBJECTIVE: The patient was seen this morning in room 360, bed 12. He is awake, alert, clear, and looking forward to discharge. His is at home and ready for him having undergone a colonoscopy yesterday. The daughter is able to come and see him later this evening and bring him home. He is ambulating safely and comfortably in good spirits, taking p.o. well and ready for discharge. Louie Olivier MD
== END 2017-04-20 16:13 | disposition home or self-care (01) | DRG 641 ==
LOC: ED 13:35 → ERH 15:16 → 3RNO 17:27 → OBSVTOIN 04-17 08:56
PROVIDERS: ADMIT Internal Medicine; ATTEND Internal Medicine
DX: E86.0 Dehydration (principal); F01.51 Vascular dementia, unspecified severity, with behavioral disturbance; I48.2 Chronic atrial fibrillation; I50.9 Heart failure, unspecified; I11.0 Hypertensive heart disease with heart failure; D64.9 Anemia, unspecified; E03.9 Hypothyroidism, unspecified; I08.3 Combined rheumatic disorders of mitral, aortic and tricuspid valves; E78.5 Hyperlipidemia, unspecified; F41.0 Panic disorder [episodic paroxysmal anxiety]; I25.10 Atherosclerotic heart disease of native coronary artery without angina pectoris; J44.9 Chronic obstructive pulmonary disease, unspecified; Z79.01 Long term (current) use of anticoagulants; Z79.899 Other long term (current) drug therapy; Z86.73 Personal history of transient ischemic attack (TIA), and cerebral infarction without residual deficits; Z87.440 Personal history of urinary (tract) infections; Z95.1 Presence of aortocoronary bypass graft; I44.7 Left bundle-branch block, unspecified; E87.6 Hypokalemia; Z91.81 History of falling

== ENCOUNTER 2018-03-12 07:46 | Day surgery (SDC) | payer MEDICARE, OTHER ==
[2018-03-01 13:19] VITALS: BMI 25.3
--- NOTE | 2018-03-10 05:38 | HP ---
DATE OF EXAM: 03/09/2018 REASON FOR ADMISSION: Left heart cath, possible angioplasty, abnormal stress test. BRIEF CLINICAL HISTORY: This is an 83-year-old male with past medical history significant for coronary artery disease status post CABG in 1997, history of atrial fibrillation, chronic on anticoagulation; CVA; COPD; history of expressive aphasia; no history of dementia, who came in for left heart cath possible angioplasty in a patient with abnormal stress test. PAST MEDICAL HISTORY: Significant for coronary artery disease, status post open heart surgery in 1998, history of cardiac catheterization on 03/19/2015, history of atrial fibrillation, anticoagulation on Coumadin, history of stent in the past, history of cardiac catheterization on 03/19/2015, three-vessel disease, patent DANIELS to LAD, patent saphenous graft to diagonal 1 and OM1 sequential and LPDA, LOTTIE to RCA nonfunctioning, but RCA 50% stenosis, ejection fraction of 45-50%, history of CVA, history of chronic atrial fibrillation, history of VT, history of psych disorder. History of recent cardiac workup as follows: History of stress test 02/14/2018 that shows probably abnormal myocardial perfusion study, probably partial reversible apical defect suspicious for ischemia. In compared to the last study, 01/01/2000, these changes appears new, ejection fraction reported 53%. The patient had echocardiography 02/14/2018 that revealed ejection fraction 45-50%, trace aortic regurgitation, moderate valvular aortic stenosis, peak gradient across the aortic valve 23 mmHg, valve area 0.9 centimeter square, mitral regurgitation, jhpe-xh-rmvxikar tricuspid regurgitation, RV systolic pressure 59. The patient had a cardiac catheterization 03/19/2015, at that time DANIELS angiogram, SVG angiogram and LOTTIE angiogram was done, and cardiac catheterization revealed a left main ostial 90% stenosis bifurcating LAD circumflex, LAD 100% occluded in the mid segment, circumflex 100% occluded in the distal segment, right coronary artery 60% stenosis noted. Left mammary artery is patent. Right internal mammary artery; right coronary artery is occluded, saphenous venous graft sequential to OM1, D1, and LPDA is patent. Ejection fraction 45%. EDP was in the range of 18. There was no gradient across aortic valve on pullback noted. SOCIAL HISTORY: Denies smoking. Denies any history of alcohol abuse. CURRENT MEDICATIONS: The patient is taking Coumadin 2 mg daily, sotalol 80 mg daily,potassium chloride, vitamin, levothyroxine, Lasix, finasteride, atorvastatin. ALLERGIES: NO KNOWN DRUG ALLERGY. PHYSICAL EXAMINATION GENERAL: As follows; height of the patient 6 feet, weight of the patient 187 pounds, and body mass index 25.4 kg/m2. VITAL SIGNS: Temperature afebrile, heart rate 80, and blood pressure 130/80. HEENT: PERRLA. Extraocular muscles intact. NECK: Supple. No carotid bruit or thyromegaly. CHEST: Clear to auscultation. HEART: S1 and S2 irregular. ABDOMEN: Soft. EXTREMITIES: Clubbing and cyanosis negative. LABORATORY DATA: Blood workup pending. IMPRESSION: An 83-year-old male with past medical history significant for coronary artery disease, coronary artery bypass grafting in . History of last catheterization showed patent left internal mammary artery to left anterior descending artery, patent saphenous graft, sequential to obtuse marginal one, diagonal one, and left posterior descending artery with right internal mammary artery to right coronary artery occluded and [place] coronary artery ostial left main 90% stenosis, left posterior descending artery subtotal and 50% ostial disease noted. New ischemia in apical segment. RECOMMENDATION: Cardiac catheterization. Further recommendation after cardiac catheterization. We will follow with you. Thank you for providing the opportunity in taking care of the patient, Goran Snowden. We will load with aspirin and Plavix. Further recommendation after cardiac catheterization. Luis Madrigal MD
[2018-03-12 08:24] LABS: BASO # 0.03 K/mm3 (0.0-2.0); BASO % 0.5 % (0.0-3.0); EOS # 0.3 (0.0-0.7); EOS % 4.1 % (1.5-5.0); GRAN # 3.42 (1.4-6.5); GRAN % 56.1 % (50.0-68.0); HEMOGLOBIN 11.9 g/dL (14.0-18.0); LYMPH # 1.9 (1.2-3.4); LYMPH % 30.4 % (22.0-35.0); MEAN CELL VOLUME 98.2 fl (80.0-105.0); MEAN CORPUSCULAR HEMOGLOBIN 31.3 pg (25.0-35.0); MEAN CORPUSCULAR HGB CONC 31.9 g/dl (31.0-37.0); MEAN PLATELET VOLUME 9.7 fl (7.0-11.0); MONO # 0.5 (0.1-0.6); MONO % 8.9 % (1.0-6.0); RBC 3.8 10^6/uL (3.5-6.1); RED CELL DISTRIBUTION WIDTH 17.6 % (11.5-14.5); WHITE BLOOD COUNT 6.1 10^3/uL (4.5-11.0)
[2018-03-12 08:27] LABS: BLOOD UREA NITROGEN 25 mg/dL (7-21); CALCIUM 8.8 mg/dL (8.4-10.5); GFR NON-AFRICAN AMERICAN 58; HDL CHOLESTEROL 28 mg/dL (29-60)
[2018-03-12 08:34] LABS: INR 1.23; PARTIAL THROMBOPLASTIN TIME 33.9 Seconds (25.1-36.5); PROTHROMBIN TIME 14.2 SECONDS (9.4-12.5)
[2018-03-12 08:36] VITALS: RESP 18
[2018-03-12 08:38] LABS: LDL CHOLESTEROL 73 mg/dL (0-129)
--- NOTE | 2018-03-12 09:22 | CARD ---
APPROVED REPORT Date of service: 03/12/2018 EKG Measurement Heart [id number] <Conclusion> Atrial fibrillation with slow ventricular response around 57/min. Left axis deviation Incomplete left bundle branch block Abnormal ECG
[2018-03-12] MEDS ORDERED: Lidocaine 2% PF (10 ml) Amp ONE (10:57)
[2018-03-12] MEDS ORDERED: Iodixanol 320 MG/ML 200 ML BOTTLE IV ONE (10:58)
[2018-03-12] MEDS ORDERED: Midazolam 2 MG/2 ML VIAL ONE (11:39)
[2018-03-12] MEDS ORDERED: Sodium Chloride 0.9% 1,000 ML IV SCH (12:45)
[2018-03-12 12:59] VITALS: TEMP 97.4
[2018-03-12 15:06] VITALS: BP 133/95; PULSE 62; O2SAT 95
--- NOTE | 2018-03-12 18:31 | CARD ---
APPROVED REPORT Date of service: 03/12/2018 Procedure(s) performed: Left Heart Catheterization DANIELS Angiogram SVG Angiogram LOTTIE Angiogram HISTORY The patient is a 83 year-old male with a history of : most recent EF: 53%. (EF Method: RADIONUCLIDE), previous CHF, previous CVA remote >= 2 weeks, chronic lung disease, previous diagnostic cath, hypertension , previous CABG (The CABG date was 05/08/1997), dyslipidemia , cerebrovascular disease , Ch. afib. recently has an abnormal stress test, partially reversible Apical defect C/w Ischemia. INDICATION The indication(s) include : positive stress test, atrial fibrillation. CASE TECHNIQUE The patient was brought electively to the Cardiac Catheterization Laboratory in a fasting state and was prepped and draped in a sterile manner. The right femoral groin was infiltrated with 2% Lidocaine subcutaneous anesthesia. A 6 Fr x 11 cm Brooke sheath was inserted into the right femoral artery without difficulty. Coronary angiography was performed using coronary diagnostic catheters. The left coronary system was accessed and visualized with a Diagnostic , 6F JL4 CATH DXT 100 CM catheter. The right coronary system was accessed and visualized with a Diagnostic ,6F JR 4 CATH DXT 100 CM catheter. The left ventricle was accessed and visualized with a 6F PIGTAIL 145 CATH DXT 110 CM catheter. The left internal mammary artery was accessed and visualized with a Diagnostic ,6 Fr CARLYN catheter. The saphenous vein graft was accessed and visualized with a Diagnostic ,6F JR 4 CATH DXT 100 CM catheter. Left ventricular/Aortic Valve gradient assessed on pullback. Left ventriculogram was performed in LOVING projection. Pre-demployment femoral angiogram was performed . Closure device was deployed with a 6 Fr / 7 Fr MynxGrip without any complications. The patient tolerated the procedure well and there were no complications associated with the procedure. Vessel Analysis The patient's coronary anatomy is co-dominant. The left main coronary artery is a medium size vessel with diffuse calcification noted throughout this vessel and without significant stenosis. The left main bifurcates to the left anterior descending and circumflex. The left anterior descending artery is a medium size vessel with diffuse calcification noted throughout this vessel and with significant stenosis. There is a 100% stenosis in the proximal to Mid segment. LAD occluded after [employer] Careg[employer]. The circumflex artery is a medium size vessel with diffuse calcification noted throughout this vessel and with significant stenosis. There is a 80-90% stenosis in the proximal segment. The first obtuse marginal branch is a medium size vessel with diffuse calcification noted throughout this vessel and without significant stenosis. The second obtuse marginal branch is a medium size vessel with diffuse calcification noted throughout this vessel and without significant stenosis. The third obtuse marginal branch is a medium size vessel with diffuse calcification noted throughout this vessel and without significant stenosis. The left posterior descending artery is a medium size vessel with diffuse calcification noted throughout this vessel and without significant stenosis. The right coronary artery is a medium size vessel with diffuse calcification noted throughout this vessel and with significant stenosis. There is a 85% stenosis in the ostial segment. The right posterior descending artery is a medium size vessel with diffuse calcification noted throughout this vessel and without significant stenosis. The left internal mammary artery to the mid left anterior descending artery segment is patent . The right internal mammary artery to the mid right coronary artery is patent . The saphenous vein graft to the D1, OM1 and L PDA, sequential is patent . Left Ventricle The left ventricle is Borderline in size with normal contractility. There was no cardiomyopathy. The left ventricular ejection fraction is estimated to be 55%. The left ventricular end diastolic pressure is 15 mmHg. There was no gradient across the aortic valve upon pullback. No gradient across aortic valve on pull back, Moderate by Echo. Conclusion [place] triple vessel DiZ Patent DANIELS to Mid LAD Patent LOTTIE to Mid RCA Patent SVG sequnetial ti D1,OM1 and L PDA Preserved Lv Fx. EF-55% ( afib), EDp-15 mmof Hg Recommendations Aggressive Medical TherapyCardiac Risk Reduction Program Resume Coumadin for Afib, F/u PT /INR on / Monday. CC; Drs. Anna lunsford / Suzi.
--- NOTE | 2018-03-13 10:03 | CPOSTOP ---
DATE: 03/12/2018 PHYSICIAN: Luis Madrigal MD ELEVATOR EXAMINER: CASSIE Garrido. TYPE OF ANESTHESIA: Moderate conscious sedation, total 2 mg of Versed, 100 mg of fentanyl given. Periodically started 1 mg of Versed, 50 mg of fentanyl. PRE-PROCEDURE DIAGNOSES: Unstable angina, coronary artery disease, coronary artery bypass graft, abnormal stress test. PROCEDURES PERFORMED: 1. Left heart catheterization. 2. DANIELS injection. 3. LOTTIE injection. 4. SVG injection. FINDINGS: [place] triple vessel disease, patent graft. FINAL DIAGNOSIS: [place] triple vessel disease, patent graft. POST PROCEDURE CONDITION: Postprocedure, the patient's condition is stable. VASCULAR ACCESS SITE: Right femoral artery. CLOSURE DEVICE: Mynx. TOTAL RADIATION DOSE: 88179.4 milligray unit. FLUORO TIME: 12.3 minutes. Luis Madrigal MD
== END 2018-03-12 17:30 | disposition home or self-care (01) ==
LOC: CATH 07:46
PROVIDERS: ATTEND Internal Medicine Cardiovascular Disease
DX: I25.110 Atherosclerotic heart disease of native coronary artery with unstable angina pectoris (principal); R94.39 Abnormal result of other cardiovascular function study; E78.5 Hyperlipidemia, unspecified; I11.0 Hypertensive heart disease with heart failure; I44.7 Left bundle-branch block, unspecified; I48.91 Unspecified atrial fibrillation; I50.9 Heart failure, unspecified; Z86.73 Personal history of transient ischemic attack (TIA), and cerebral infarction without residual deficits; Z95.1 Presence of aortocoronary bypass graft
CPT/HCPCS: 36415; 80048; 80061; 85025; 85610; 85730; 86850; 86900; 93005; 93459; 99152; 99153; C1760; C1769 ×3; C2629; J1644; J2250; J3010; J7030; J7040; Q9966

== ENCOUNTER 2018-08-17 12:56 | Outpatient (CLI) | payer MEDICARE, OTHER | END 2018-08-17 12:57 | disposition home or self-care (01) | LOC: RAD 12:56 ==